=== PATIENT | female | born 1940 | race Caucasian/White ===

== ENCOUNTER → 2016-07-19 | Outpatient (CLI) | payer MEDICARE ==
--- NOTE | 2016-07-19 11:22 | BD ---
EXAMINATION TYPE: MG DEXA axial skeleton. DATE OF EXAM: 07/19/2016 10:47 AM COMPARISON: November 08, 2008 bone scan report. CLINICAL HISTORY: post menopausal Height: 5'1 Weight: 181 FRAX RISK QUESTIONS: Alcohol (3 or more units per day): no Family History (Parent hip fracture): no Glucocorticoids (More than 3mos): no (Ex: prednisone, prednisolone, methylprednisolone, dexamethasone, and hydrocortisone). History of Fracture in Adulthood: yes Secondary Osteoporosis: 1. Type 1 Diabetes: no 2. Hyperthyroidism: no 3. Menopause before 45: yes 4. Malnutrition: no 5. Chronic liver disease: no Rheumatoid Arthritis: no Current Tobacco Use: yes RISK FACTORS HISTORY OF: Surgery to Spine/Hip(right/left)/Wrist (right/left): total rt hip When: 2016 Other Fractures since Age 50: yes When: 66 age Smoke tobacco: yes Postmenopausal woman: MEDICATIONS: Prednisone or other steroids: yes How Lon week Additional Medications: diabetic, blood pressure, restless leg Additional History: post menopausal EXAM MEASUREMENTS: Bone mineral densitometry was performed using the TwtBks System. Bone mineral density as measured about the Lumbar spine is: ----- L1-L4(G/cm2): 1.243 T Score Values are as follows: ----- L2: -1.0 ----- L3: 1.0 ----- L4: 2.1 ----- L1-L4: 0.5 Bone mineral density has: Increased 12.0% since study of: 11/08/2008 Bone mineral density about the L hip (g/cm2): 0.931 T Score values are as follows: -----L Neck: -0.8 -----L Intertrochanter: -0.3 Bone mineral density has: Decreased -5.9% since study of: 11/08/2008 IMPRESSION: Normal (Values between +1 and -1 indicate normal bone mass) NOTE: T-SCORE=SD OF THE YOUNG ADULT MEAN.
--- NOTE | 2016-07-22 09:12 | MM ---
Reason for exam: screening (asymptomatic). Last mammogram was performed 1 year ago. History: Patient is postmenopausal. 2 excisional biopsies of the left breast. Physical Findings: A clinical breast exam by your physician is recommended on an annual basis and results should be correlated with mammographic findings. MG 3D Screening Mammo W/Cad Bilateral CC and MLO view(s) were taken. Prior study comparison: July 18, 2015, left breast MG work up mamm w CAD LT. July 04, 2015, bilateral MG 3d screening mammo w/cad. There are scattered fibroglandular densities. Finding: There are typically benign round calcifications. There is no discrete abnormality. No significant changes in finding since July 18, 2015 and July 04, 2015. ASSESSMENT: Benign, BI-RAD 2 RECOMMENDATION: Routine screening mammogram of both breasts in 1 year.
== END | disposition home or self-care (01) ==
LOC: RADMAMWWP 10:11
PROVIDERS: ATTEND Family Medicine
DX: Z12.31 Encounter for screening mammogram for malignant neoplasm of breast (principal); N95.8 Other specified menopausal and perimenopausal disorders; E11.40 Type 2 diabetes mellitus with diabetic neuropathy, unspecified; J44.9 Chronic obstructive pulmonary disease, unspecified; I10 Essential (primary) hypertension; M16.9 Osteoarthritis of hip, unspecified; Z96.649 Presence of unspecified artificial hip joint
CPT/HCPCS: 77080; 77063; G0202

== ENCOUNTER → 2017-02-26 | Outpatient (CLI) | payer MEDICARE ==
[2017-02-26 12:06] LABS: Basophils % (A) 0 %; CH 30.1; CHCM 32.1; Eosinophils # (A) 0.1 k/uL (0-0.7); Eosinophils % (A) 1 %; HCT 39.5 % (34.0-46.0); HDW 2.24; HGB 12.2 gm/dL (11.4-16.0); Luc # (Auto) 0.19; Luc % (Auto) 2; Lymphocytes # (A) 2.7 k/uL (1.0-4.8); Lymphocytes % (A) 28 %; MCH 29.2 pg (25.0-35.0); MCV 94.3 fL (80.0-100.0); Mean Platelet Volume 7.6; Monocytes # (A) 0.5 k/uL (0-1.0); Monocytes % (A) 5 %; Neutrophils # (A) 6.4 k/uL (1.3-7.7); Neutrophils % (A) 64 %; RBC 4.19 m/uL (3.80-5.40); WBC 9.9 k/uL (3.8-10.6); WBC (Perox) 9.22
[2017-02-26 13:39] LABS: Hemoglobin A1C 9.2 % (4.2-6.1)
== END | disposition home or self-care (01) ==
LOC: LABWHC1 11:14
PROVIDERS: ATTEND Psychiatry & Neurology Neurology
DX: E11.40 Type 2 diabetes mellitus with diabetic neuropathy, unspecified (principal)
CPT/HCPCS: 36415; 83036; 85025

== ENCOUNTER → 2017-11-20 | Outpatient (CLI) | payer MEDICARE, SELFPAY ==
--- NOTE | 2017-11-24 08:22 | MM ---
Reason for exam: screening (asymptomatic). Last mammogram was performed 1 year and 4 months ago. History: Patient is postmenopausal. 2 excisional biopsies of the left breast. Physical Findings: A clinical breast exam by your physician is recommended on an annual basis and results should be correlated with mammographic findings. MG 3D Screening Mammo W/Cad Bilateral CC and MLO view(s) were taken. Prior study comparison: July 19, 2016, bilateral MG 3d screening mammo w/cad. July 18, 2015, left breast MG work up mamm w CAD LT. There are scattered fibroglandular densities. Finding: There are typically benign round calcifications in both breasts. There is a chronic nodularity bilaterally, greater in dustin right breast. There is no discrete abnormality. ASSESSMENT: Benign, BI-RAD 2 RECOMMENDATION: Routine screening mammogram of both breasts in 1 year.
== END | disposition home or self-care (01) ==
LOC: RADMAMWWP 08:55
PROVIDERS: ATTEND Family Medicine
DX: Z12.31 Encounter for screening mammogram for malignant neoplasm of breast (principal)
CPT/HCPCS: 77063; 77067

== ENCOUNTER 2018-06-04 09:39 | Inpatient (IN) | payer MEDICARE ==
[2018-06-04] MEDS ORDERED: SODIUM CHLORIDE 0.9% 1,000 ML IV STA (09:58)
--- NOTE | 2018-06-04 10:09 | ED ---
Abdominal Pain HPI - General Chief Complaint: Abdominal Pain Stated Complaint: Stomach pain Time Seen by Provider: 06/04/18 09:51 Source: patient, RN notes reviewed Mode of arrival: ambulatory Limitations: no limitations - History of Present Illness Initial Comments: 77-year-old female presents emergency Department chief complaint abdominal pain. Patient states has been going on for last 2 months. Patient has seen PCP several times for this has had no workup including no labs or x-rays. Patient was seen at urgent care last night had lab work and was advised her emergency Department if symptoms worsen for possible Or Imaging. Patient Denies Any Fevers or Chills. She States She Does Have Bowel Movements Denies Any Melena or Hematochezia. Patient States Her Bowel Movements Are Hard. Patient Denies Any Back Pain, Flank Pain, Chest Pain or Shortness of Breath. She Has No Dysuria No Hematuria. - Related Data Home Medications Medication Instructions Recorded Confirmed Albuterol Nebulized [Ventolin 2.5 mg INHALATION RT-Q4H PRN 02/14/15 06/04/18 Nebulized] Estradiol 0.5 mg PO DAILY 02/14/15 06/04/18 Gabapentin [Neurontin] 400 mg PO QID 02/14/15 06/04/18 Insulin Lispro Protamin/Lispro 14 units SQ AC-BID 02/14/15 06/04/18 [humaLOG Mix 75-25 Kwikpen] Multivitamins, Thera [Multivitamin 1 tab PO DAILY 02/14/15 06/04/18 (formulary)] Pravastatin Sodium [Pravachol] 80 mg PO HS 02/14/15 06/04/18 sitaGLIPtin PHOS/metFORMIN HCL 2 tab PO AC-SUPPER 02/14/15 06/04/18 [Janumet Xr 50-1,000 mg Tablet] Aspirin EC [Ecotrin Low Dose] 81 mg PO DAILY 06/04/18 06/04/18 Previous Rx's Medication Instructions Recorded Atenolol 25 mg PO DAILY #0 03/01/15 Lisinopril [Zestril] 10 mg PO DAILY #0 03/01/15 Allergies Allergy/AdvReac Type Severity Reaction Status Date / Time cobalt Allergy Unknown TESTED Verified 06/04/18 10:03 POSITIVE ON ALLERGY TESTING latex Allergy Unknown Rash/Hives Verified 06/04/18 10:03 thimerosal Allergy Unknown TESTED Verified 06/04/18 10:03 POSITIVE ON ALLERGY TEST Review of Systems ROS Statement: Those systems with pertinent positive or pertinent negative responses have been documented in the HPI. ROS Other: All systems not noted in ROS Statement are negative. Past Medical History Past Medical History: Diabetes Mellitus History of Any Multi-Drug Resistant Organisms: None Reported Past Surgical History: Orthopedic Surgery Past Psychological History: No Psychological Hx Reported Smoking Status: Current every day smoker Past Alcohol Use History: None Reported Past Drug Use History: None Reported General Exam General appearance: alert, in no apparent distress Head exam: Present: atraumatic, normocephalic, normal inspection Neck exam: Present: normal inspection. Absent: tenderness, meningismus, lymphadenopathy Respiratory exam: Present: normal lung sounds bilaterally. Absent: respiratory distress, wheezes, rales, rhonchi, stridor Cardiovascular Exam: Present: normal rhythm, tachycardia, normal heart sounds. Absent: systolic murmur, diastolic murmur, rubs, gallop, clicks GI/Abdominal exam: Present: soft, tenderness (Mild left-sided and upper abdominal tenderness), normal bowel sounds. Absent: distended, guarding, rebound, rigid Back exam: Absent: CVA tenderness (R), CVA tenderness (L) Skin exam: Present: warm, dry, intact, normal color. Absent: rash Course Vital Signs 06/04/18 09:41 Temperature 98.2 F Pulse Rate 114 H Respiratory 18 Rate Blood Pressure 147/77 O2 Sat by Pulse 100 Oximetry Medical Decision Making - Medical Decision Making 77-year-old female presented for abdominal pain. Patient had CT abdomen initially with findings of possible vasculitis or inflammatory process surrounding the aorta. CT chest was obtained shows some her eye needs. Case discussed with Dr. Enrique cardiothoracic recommend inpatient for further evaluation. This is not evidence of dissection. - Lab Data Result diagrams: 06/04/18 10:30 06/04/18 10:30 Lab Results 06/04/18 06/04/18 06/04/18 Range/Units 10:30 10:30 12:07 WBC 10.9 H (3.8-10.6) k/uL RBC 3.88 (3.80-5.40) m/uL Hgb 9.6 L (11.4-16.0) gm/dL Hct 30.4 L (34.0-46.0) % MCV 78.4 L (80.0-100.0) fL MCH 24.8 L (25.0-35.0) pg MCHC 31.7 (31.0-37.0) g/dL RDW 16.2 H (11.5-15.5) % Plt Count 625 H (150-450) k/uL Neutrophils % 80 % Lymphocytes % 14 % Monocytes % 4 % Eosinophils % 0 % Basophils % 0 % Neutrophils # 8.7 H (1.3-7.7) k/uL Lymphocytes # 1.6 (1.0-4.8) k/uL Monocytes # 0.4 (0-1.0) k/uL Eosinophils # 0.0 (0-0.7) k/uL Basophils # 0.0 (0-0.2) k/uL Hypochromasia Moderate Anisocytosis Slight Microcytosis Slight Sodium 137 (137-145) mmol/L Potassium 5.5 H (3.5-5.1) mmol/L Chloride 102 (98-107) mmol/L Carbon Dioxide 22 (22-30) mmol/L Anion Gap 13 mmol/L BUN 14 (7-17) mg/dL Creatinine 0.81 (0.52-1.04) mg/dL Est GFR (CKD-EPI)AfAm 82 (>60 ml/min/1.73 sqM) Est GFR (CKD-EPI)NonAf 71 (>60 ml/min/1.73 sqM) Glucose 353 H (74-99) mg/dL Calcium 9.6 (8.4-10.2) mg/dL Total Bilirubin 0.8 (0.2-1.3) mg/dL AST 13 L (14-36) U/L ALT 20 (9-52) U/L Alkaline Phosphatase 78 (38-126) U/L Total Protein 7.4 (6.3-8.2) g/dL Albumin 3.6 (3.5-5.0) g/dL Amylase <30 L (30-110) U/L Lipase 15 L (23-300) U/L Urine Color Light Yellow Urine Appearance Clear (Clear) Urine pH 5.5 (5.0-8.0) Ur Specific [place] 1.034 (1.001-1.035) Urine Protein Negative (Negative) Urine Glucose (UA) 3+ H (Negative) Urine Ketones 2+ H (Negative) Urine Blood Negative (Negative) Urine Nitrite Negative (Negative) Urine Bilirubin Negative (Negative) Urine Urobilinogen <2.0 (<2.0) mg/dL Ur Leukocyte Esterase Moderate H (Negative) Urine WBC 10 H (0-5) /hpf Ur Squamous Epith Cells 1 (0-4) /hpf Urine Bacteria Occasional H (None) /hpf Disposition Clinical Impression: Abdominal pain Narrative: Aortic vasculitis Disposition: ADMITTED IP TO THIS HOSP Condition: Stable Referrals: Rachel Farfan MD [Primary Care Provider] - 1-2 days
[2018-06-04 10:54] LABS: Anisocytosis Slight; Basophils % (A) 0 %; Eosinophils % (A) 0 %; HCT 30.4 % (34.0-46.0); HGB 9.6 gm/dL (11.4-16.0); Hypochromasia Moderate; Lymphocytes # (A) 1.6 k/uL (1.0-4.8); Lymphocytes % (A) 14 %; MCH 24.8 pg (25.0-35.0); MCHC 31.7 g/dL (31.0-37.0); MCV 78.4 fL (80.0-100.0); Mean Platelet Volume 6.6; Microcytosis Slight; Monocytes # (A) 0.4 k/uL (0-1.0); Monocytes % (A) 4 %; Neutrophils # (A) 8.7 k/uL (1.3-7.7); Neutrophils % (A) 80 %; Platelet Count 625 k/uL (150-450); RBC 3.88 m/uL (3.80-5.40); RDW 16.2 % (11.5-15.5); WBC 10.9 k/uL (3.8-10.6)
[2018-06-04 11:03] LABS: ALT 20 U/L (9-52); AST 13 U/L (14-36); Albumin 3.6 g/dL (3.5-5.0); Alkaline Phosphatase 78 U/L (38-126); Amylase <30 U/L (30-110); Anion Gap 13 mmol/L; Blood Urea Nitrogen 14 mg/dL (7-17); Calcium 9.6 mg/dL (8.4-10.2); Carbon Dioxide 22 mmol/L (22-30); Chloride 102 mmol/L (98-107); Glucose 353 mg/dL (74-99); Lipase 15 U/L (23-300); Potassium 5.5 mmol/L (3.5-5.1); Sodium 137 mmol/L (137-145); Total Bilirubin 0.8 mg/dL (0.2-1.3); Total Protein 7.4 g/dL (6.3-8.2)
--- NOTE | 2018-06-04 11:30 | CT ---
EXAMINATION TYPE: CT abdomen pelvis w con DATE OF EXAM: 06/04/2018 COMPARISON: None HISTORY: generalized pain since January 2018 CT DLP: 788.8 mGycm CONTRAST: CT scan of the abdomen and pelvis is performed without Oral Contrast and with IV Contrast, patient in jected with 100 mL of Isovue 300. FINDINGS: LUNG BASES-: Pulmonary nodule measuring 1.4 cm is noted adjacent to the left ventricle left lower lob e. CT chest recommended. LIVER/GB: No calcified gallstones. No space occupying hepatic lesion. Biliary tree is of normal ca liber. PANCREAS: No inflammation. No distinct mass. SPLEEN: No splenic enlargement. No lesion seen. ADRENALS: No nodule. No thickening. KIDNEYS/BLADDER: No hydronephrosis. No nephrolithiasis. No distinct renal mass. Urinary bladder g rossly unremarkable. BOWEL: Normal appendix. Normal bowel caliber. No inflammation. GENITAL ORGANS: Postoperative changes of hysterectomy. LYMPH NODES: No greater than 1cm abdominal or pelvic lymph nodes are appreciated. AORTA: There is enhancing soft tissue surrounding the distal thoracic aorta as well as portions of th e abdominal aorta which may reflect chronic periaortitis, vasculitis or retroperitoneal fibrosis/medi astinal fibrosis. CT of the chest is recommended for further evaluation. OSSEOUS STRUCTURES: No significant abnormality is seen. OTHER: No significant additional abnormality is seen. IMPRESSION: 1. There is enhancing soft tissue surrounding the distal thoracic aorta as well as portions of the ab dominal aorta which may reflect chronic periaortitis, vasculitis or retroperitoneal fibrosis/mediasti nal fibrosis. CT of the chest is recommended for further evaluation. 2. Left lower lobe pulmonary nodule. Further evaluation with CT is advised.
[2018-06-04 12:26] LABS: Appearance,Urine Clear (Clear); Bacteria,Urine Occasional /hpf; Bilirubin,Urine Negative (Negative); Blood,Urine Negative (Negative); Color,Urine Light Yellow; Glucose,Urine (UA) 3+ (Negative); Leukocyte Esterase,Urine Moderate (Negative); Nitrite,Urine Negative (Negative); PH, Urine 5.5 (5.0-8.0); Protein,Urine Negative (Negative); Specific Gravity,Urine 1.034 (1.001-1.035); Squamous Epithelial Cell,Urine 1 /hpf (0-4); Urobilinogen,Urine <2.0 mg/dL (<2.0); WBC,Urine 10 /hpf (0-5)
[2018-06-04 12:32] LABS: Ketones,Urine 2+ (Negative)
--- NOTE | 2018-06-04 12:40 | CT ---
EXAMINATION TYPE: CT chest wo con DATE OF EXAM: 06/04/2018 COMPARISON: CT abdomen pelvis from the same day. HISTORY: Abn CT abd pelvis CT DLP: 268.[address] of the chest was performed with lung and mediastinal window settings submitted. The la ck of contrast limits evaluation of the vascular, mediastinal and parenchymal structures including th e upper abdomen. LUNGS: The lungs are clear and free of infiltrate. No atelectasis. Solitary pulmonary nodule left low er lobe adjacent to the posterior heart. No additional nodules are present. Linear scarring within th e lingula. No pleural effusion. No CT evidence of interstitial lung disease. MEDIASTINUM/ABIMAEL: There is soft tissue surrounding the descending thoracic aorta extending from just distal aortic arch through the distal descending thoracic aorta. This is not compatible with hemorrha ge. Associated atheromatous changes without evidence for aneurysm. No evidence for mediastinal mass. UPPER ABDOMEN: No significant abnormality is seen. OTHER: No significant other abnormality. IMPRESSION: 1. Findings are felt to reflect aortic periaortitis, vasculitis or retroperitoneal fibrosis/mediasti nal fibrosis. No evidence for hemorrhage. 2. Nonspecific pulmonary nodule. Follow-up in 3 months is advised.
[2018-06-04] MEDS ORDERED: KETOROLAC 30 MG/ML 1 ML VIAL IVP STA (13:17)
[2018-06-04] MEDS ORDERED: BUTA/APAP/CAF/COD 50-325-40-30 CAP PO STA (13:17)
[2018-06-04] MEDS ORDERED: NALOXONE 0.4 MG/ML 1 ML VIAL IV PRN (14:00)
[2018-06-04] MEDS ORDERED: ALBUTEROL NEBULIZED 2.5 MG/3 ML INHALATION PRN (14:03)
[2018-06-04] MEDS: SODIUM CHLORIDE 0.9% 1,000 ML IV SCH (14:14)
[2018-06-04 14:22] LABS: Glucose,Whole Blood 308 mg/dL (75-99)
[2018-06-04] MEDS ORDERED: SODIUM POLYSTYRENE SULFONATE 15 GM/60 ML BOTTLE PO STA (14:56)
--- NOTE | 2018-06-04 15:11 | P.HPIM ---
History of Present Illness H&P Date: 06/04/18 Chief Complaint: Abdominal pain This is a 77-year-old female with a known past medical history of hypertension, hyperlipidemia, diabetes mellitus, nicotine dependence, obstructive sleep apnea uses CPAP. She reports having abdominal pain since January. She had gone to see her PCP their concerns of constipation. However, patient reports having the abdominal pain before she had issues with constipation. She reports having daily bowel movements. No nausea or vomiting. Pain is worse after eating any type of food. Pain is across the abdomen. It can be sharp or achy at times. She denies any blood or black stools. Denies any nausea or vomiting. Denies any fever chills or sweats. Denies any chest pain or shortness of breath. She does admit to having some burning with urination. She does have evidence of UTI and will be started on Rocephin. Last night she had initially gone to the ER but left due to the weight and went to urgent care and was instructed to go to the ER for further imaging. Computed tomography scan of the abdomen and pelvis completed showing enhancing soft tissue surrounding the distal thoracic aorta as well as portions of the abdominal aorta which may reflect chronic periaortitis, vasculitis for retroperitoneal fibrosis or mediastinal fibrosis. There is also a left lower lobe pulmonary nodule noted. Computed tomography scan of the chest then ordered and findings felt to reflect aortic aortitis, vasculitis or retroperitoneal fibrosis/mediastinal fibrosis. No evidence for hemorrhage. Nonspecific pulmonary nodule. They recommend follow-up in 3 months. Cardiothoracic surgeon has been placed on consult. Patient does have a white count of 10.9 hemoglobin 9.6 platelets 625 potassium 5.5 and blood sugar 308. She has evidence of UTI. Review of Systems Please refer to HPI otherwise unremarkable Past Medical History Past Medical History: Diabetes Mellitus History of Any Multi-Drug Resistant Organisms: None Reported Past Surgical History: Orthopedic Surgery Past Psychological History: No Psychological Hx Reported Smoking Status: Current every day smoker Past Alcohol Use History: None Reported Past Drug Use History: None Reported Medications and Allergies Home Medications Medication Instructions Recorded Confirmed Type Albuterol Nebulized [Ventolin 2.5 mg INHALATION RT-Q4H PRN 02/14/15 06/04/18 History Nebulized] Estradiol 0.5 mg PO DAILY 02/14/15 06/04/18 History Gabapentin [Neurontin] 400 mg PO QID 02/14/15 06/04/18 History Insulin Lispro Protamin/Lispro 14 units SQ AC-BID 02/14/15 06/04/18 History [humaLOG Mix 75-25 Kwikpen] Multivitamins, Thera [Multivitamin 1 tab PO DAILY 02/14/15 06/04/18 History (formulary)] Pravastatin Sodium [Pravachol] 80 mg PO HS 02/14/15 06/04/18 History sitaGLIPtin PHOS/metFORMIN HCL 2 tab PO AC-SUPPER 02/14/15 06/04/18 History [Janumet Xr 50-1,000 mg Tablet] Atenolol 25 mg PO DAILY #0 03/01/15 06/04/18 Rx Lisinopril [Zestril] 10 mg PO DAILY #0 03/01/15 06/04/18 Rx Aspirin EC [Ecotrin Low Dose] 81 mg PO DAILY 06/04/18 06/04/18 History Allergies Allergy/AdvReac Type Severity Reaction Status Date / Time cobalt Allergy Unknown TESTED Verified 06/04/18 10:03 POSITIVE ON ALLERGY TESTING latex Allergy Unknown Rash/Hives Verified 06/04/18 10:03 thimerosal Allergy Unknown TESTED Verified 06/04/18 10:03 POSITIVE ON ALLERGY TEST Physical Exam Vitals: Vital Signs Temp Pulse Resp BP Pulse Ox 06/04/18 09:41 98.2 F 114 H 18 147/77 100 Intake and Output 06/04/18 06/04/18 06/04/18 06:59 14:59 22:59 Other: Weight 68.946 kg Head normocephalic Neck supple Lungs clear to auscultation bilaterally no wheezing or crackles Heart regular rate and rhythm S1-S2, no rub or gallop Abdomen is soft nondistended positive bowel sounds diffuse abdominal tenderness Extremities no edema Neuro alert and orientated to 3 Results CBC & Chem 7: 06/04/18 10:30 06/04/18 10:30 Labs: Abnormal Lab Results - Last 24 Hours (Table) 06/04/18 06/04/18 06/04/18 Range/Units 10:30 10:30 12:07 WBC 10.9 H (3.8-10.6) k/uL Hgb 9.6 L (11.4-16.0) gm/dL Hct 30.4 L (34.0-46.0) % MCV 78.4 L (80.0-100.0) fL MCH 24.8 L (25.0-35.0) pg RDW 16.2 H (11.5-15.5) % Plt Count 625 H (150-450) k/uL Neutrophils # 8.7 H (1.3-7.7) k/uL Potassium 5.5 H (3.5-5.1) mmol/L Glucose 353 H (74-99) mg/dL POC Glucose (mg/dL) (75-99) mg/dL AST 13 L (14-36) U/L Amylase <30 L (30-110) U/L Lipase 15 L (23-300) U/L Urine Glucose (UA) 3+ H (Negative) Urine Ketones 2+ H (Negative) Ur Leukocyte Esterase Moderate H (Negative) Urine WBC 10 H (0-5) /hpf Urine Bacteria Occasional H (None) /hpf 06/04/18 Range/Units 14:21 WBC (3.8-10.6) k/uL Hgb (11.4-16.0) gm/dL Hct (34.0-46.0) % MCV (80.0-100.0) fL MCH (25.0-35.0) pg RDW (11.5-15.5) % Plt Count (150-450) k/uL Neutrophils # (1.3-7.7) k/uL Potassium (3.5-5.1) mmol/L Glucose (74-99) mg/dL POC Glucose (mg/dL) 308 H (75-99) mg/dL AST (14-36) U/L Amylase (30-110) U/L Lipase (23-300) U/L Urine Glucose (UA) (Negative) Urine Ketones (Negative) Ur Leukocyte Esterase (Negative) Urine WBC (0-5) /hpf Urine Bacteria (None) /hpf Assessment and Plan Assessment: 1. Abdominal pain with computed tomography scan of the chest abdomen and pelvis showing findings at felt to reflect aortic periaortitis, vasculitis or retroperitoneal fibrosis/mediastinal fibrosis. Cardiothoracic surgeon has been consulted 2. Nonspecific pulmonary nodule in the left lower lobe 3. UTI: Check urine culture. Start Rocephin 1 g daily 4. Hyperkalemia: Potassium 5.5. Give Kayexalate 15 g 1. Discontinue lisinopril. Repeat potassium level in a.m. 5. Microcytic Anemia hemoglobin 9.6 no active signs of bleeding. Check iron studies 6. Diabetes mellitus type 2: Resume insulin add sliding scale coverage. Hold metformin during hospitalization. Patient did receive contrast CAT scan 7. Essential hypertension 8. Hyperlipidemia 9. Nicotine dependence: Patient refused nicotine patch. Discussed smoking cessation for greater than 3 minutes 10. Obstructive sleep apnea uses CPAP at home 11. Thrombocytosis: Repeat CBC in a.m. GI prophylaxis tonics and DVT prophylaxis subcu heparin Time with Patient: Greater than 30 (Greater than 50% of the total time spent in counseling and coordination of care.I performed an examination of the patient and discussed their management with the physician [employer]. I have reviewed the Physician [employer]'s notes and agree with the documented findings and plan of care)
[2018-06-04] MEDS: INSULIN ASPART 100 UNIT/ML 1 ML 10 ML VIAL SQ SCH ×3 (15:25→21:51)
[2018-06-04] MEDS: PANTOPRAZOLE 40 MG TABLET PO SCH (16:38)
[2018-06-04 16:39] LABS: Glucose,Whole Blood 251 mg/dL (75-99)
[2018-06-04 18:21] LABS: Glucose,Whole Blood 170 mg/dL (75-99)
[2018-06-04] MEDS: GABAPENTIN 400 MG CAP PO SCH ×2 (18:28→21:39)
[2018-06-04] MEDS: INSULN ASP PRT/INSULIN ASPART 100 UNIT/ML 10 ML VIAL SQ SCH (18:28)
[2018-06-04] MEDS: HEPARIN SODIUM,PORCINE 5,000 UNIT/ML 1 ML VIAL SQ SCH (21:39)
[2018-06-04] MEDS: PRAVASTATIN SODIUM 80 MG TAB PO SCH (21:39)
[2018-06-04 21:56] LABS: Glucose,Whole Blood 88 mg/dL (75-99)
[2018-06-05] MEDS: SODIUM CHLORIDE 0.9% 1,000 ML IV SCH (04:06)
[2018-06-05 04:26] LABS: Iron Saturation 8.43 (12.00-45.00)
[2018-06-05 07:32] LABS: Glucose,Whole Blood 187 mg/dL (75-99)
[2018-06-05] MEDS: INSULN ASP PRT/INSULIN ASPART 100 UNIT/ML 10 ML VIAL SQ SCH ×2 (07:36→17:17)
[2018-06-05] MEDS: HEPARIN SODIUM,PORCINE 5,000 UNIT/ML 1 ML VIAL SQ SCH ×2 (07:36→21:45)
[2018-06-05] MEDS: INSULIN ASPART 100 UNIT/ML 1 ML 10 ML VIAL SQ SCH ×4 (07:36→21:43)
[2018-06-05] MEDS: PANTOPRAZOLE 40 MG TABLET PO SCH (07:36)
[2018-06-05] MEDS: MULTIVITAMINS, THERA 1 EACH TAB PO SCH (07:37)
[2018-06-05] MEDS: ESTRADIOL 0.5 MG TAB PO SCH (07:37)
[2018-06-05] MEDS: ASPIRIN 81 MG PO SCH (07:37)
[2018-06-05] MEDS: GABAPENTIN 400 MG CAP PO SCH ×4 (07:37→21:46)
[2018-06-05] MEDS: ATENOLOL 25 MG TAB PO SCH (07:37)
[2018-06-05] MEDS ORDERED: LISINOPRIL 10 MG TAB PO SCH (09:00)
[2018-06-05 09:53] LABS: Anisocytosis Slight; Basophils % (A) 0 %; Eosinophils # (A) 0.1 k/uL (0-0.7); Eosinophils % (A) 1 %; HCT 28.5 % (34.0-46.0); Hypochromasia Moderate; Lymphocytes % (A) 19 %; MCH 24.8 pg (25.0-35.0); MCHC 31.5 g/dL (31.0-37.0); MCV 78.6 fL (80.0-100.0); Mean Platelet Volume 6.7; Microcytosis Slight; Monocytes # (A) 0.5 k/uL (0-1.0); Monocytes % (A) 4 %; Neutrophils # (A) 7.8 k/uL (1.3-7.7); Neutrophils % (A) 74 %; Platelet Count 564 k/uL (150-450); RBC 3.63 m/uL (3.80-5.40); RDW 16.6 % (11.5-15.5); WBC 10.5 k/uL (3.8-10.6)
[2018-06-05 10:51] LABS: Albumin 3.2 g/dL (3.5-5.0); Calcium 8.9 mg/dL (8.4-10.2); Potassium 4.7 mmol/L (3.5-5.1); Total Bilirubin 0.3 mg/dL (0.2-1.3); Total Protein 6.7 g/dL (6.3-8.2)
--- NOTE | 2018-06-05 12:12 | P.PN ---
Subjective Progress Note Date: 06/05/18 This is a 77-year-old female with a known past medical history of hypertension, hyperlipidemia, diabetes mellitus, nicotine dependence, obstructive sleep apnea uses CPAP. She reports having abdominal pain since January. She had gone to see her PCP their concerns of constipation. However, patient reports having the abdominal pain before she had issues with constipation. She reports having daily bowel movements. No nausea or vomiting. Pain is worse after eating any type of food. Pain is across the abdomen. It can be sharp or achy at times. She denies any blood or black stools. Denies any nausea or vomiting. Denies any fever chills or sweats. Denies any chest pain or shortness of breath. She does admit to having some burning with urination. She does have evidence of UTI and will be started on Rocephin. Last night she had initially gone to the ER but left due to the weight and went to urgent care and was instructed to go to the ER for further imaging. Computed tomography scan of the abdomen and pelvis completed showing enhancing soft tissue surrounding the distal thoracic aorta as well as portions of the abdominal aorta which may reflect chronic periaortitis, vasculitis for retroperitoneal fibrosis or mediastinal fibrosis. There is also a left lower lobe pulmonary nodule noted. Computed tomography scan of the chest then ordered and findings felt to reflect aortic aortitis, vasculitis or retroperitoneal fibrosis/mediastinal fibrosis. No evidence for hemorrhage. Nonspecific pulmonary nodule. They recommend follow-up in 3 months. Cardiothoracic surgeon has been placed on consult. Patient does have a white count of 10.9 hemoglobin 9.6 platelets 625 potassium 5.5 and blood sugar 308. She has evidence of UTI. 06/05/2018 patient reporting some improvement in her abdominal pain. No nausea or vomiting. Denies any bowel movements. She is passing gas. White count normalized at 10.5 hemoglobin 9. Rheumatoid factor elevated at 90 CRP elevated at 138.4 and ANCA is pending. Patient denies any chest pain or shortness of breath. Still having decreased appetite Objective - Vital Signs Vital signs: Vital Signs Temp 98.7 F 06/05/18 07:00 Pulse 106 H 06/05/18 07:00 Resp 20 06/05/18 07:00 BP 144/80 06/05/18 07:00 Pulse Ox 95 06/05/18 07:00 Intake & Output 06/04/18 06/05/18 06/05/18 18:59 06:59 18:59 Intake Total 800 Balance 800 Weight 68.946 kg 68.946 kg Intake: Oral 800 Other: # Voids 2 - Exam Head normocephalic Neck supple Lungs clear to auscultation bilaterally no wheezing or crackles Heart regular rate and rhythm S1-S2, no rub or gallop Abdomen is soft diffuse tenderness nondistended positive bowel sounds no hepatosplenomegaly Extremities no edema Neuro alert and orientated to 3 - Labs CBC & Chem 7: 06/05/18 09:25 06/05/18 09:25 Labs: Abnormal Lab Results - Last 24 Hours (Table) 06/04/18 06/04/18 06/04/18 Range/Units 10:30 10:30 12:07 RBC (3.80-5.40) m/uL Hgb (11.4-16.0) gm/dL Hct (34.0-46.0) % MCV (80.0-100.0) fL MCH (25.0-35.0) pg RDW (11.5-15.5) % Plt Count (150-450) k/uL Neutrophils # (1.3-7.7) k/uL ESR (0-20) mm/hr Chloride (98-107) mmol/L Glucose (74-99) mg/dL POC Glucose (mg/dL) (75-99) mg/dL Iron 21 L (50-170) ug/dL Iron Saturation 8.43 L (12.00-45.00) Ferritin 311.7 H (10.0-291.0) ng/mL AST (14-36) U/L C-Reactive Protein (<10.0) mg/L Albumin (3.5-5.0) g/dL Urine Glucose (UA) 3+ H (Negative) Urine Ketones 2+ H (Negative) Ur Leukocyte Esterase Moderate H (Negative) Urine WBC 10 H (0-5) /hpf Urine Bacteria Occasional H (None) /hpf Rheumatoid Factor 90 H (0-15) IU/mL 06/04/18 06/04/18 06/04/18 Range/Units 14:21 15:40 15:40 RBC (3.80-5.40) m/uL Hgb (11.4-16.0) gm/dL Hct (34.0-46.0) % MCV (80.0-100.0) fL MCH (25.0-35.0) pg RDW (11.5-15.5) % Plt Count (150-450) k/uL Neutrophils # (1.3-7.7) k/uL ESR 120 H (0-20) mm/hr Chloride (98-107) mmol/L Glucose (74-99) mg/dL POC Glucose (mg/dL) 308 H (75-99) mg/dL Iron (50-170) ug/dL Iron Saturation (12.00-45.00) Ferritin (10.0-291.0) ng/mL AST (14-36) U/L C-Reactive Protein 138.4 H (<10.0) mg/L Albumin (3.5-5.0) g/dL Urine Glucose (UA) (Negative) Urine Ketones (Negative) Ur Leukocyte Esterase (Negative) Urine WBC (0-5) /hpf Urine Bacteria (None) /hpf Rheumatoid Factor (0-15) IU/mL 06/04/18 06/04/18 06/05/18 Range/Units 16:38 18:18 07:29 RBC (3.80-5.40) m/uL Hgb (11.4-16.0) gm/dL Hct (34.0-46.0) % MCV (80.0-100.0) fL MCH (25.0-35.0) pg RDW (11.5-15.5) % Plt Count (150-450) k/uL Neutrophils # (1.3-7.7) k/uL ESR (0-20) mm/hr Chloride (98-107) mmol/L Glucose (74-99) mg/dL POC Glucose (mg/dL) 251 H 170 H 187 H (75-99) mg/dL Iron (50-170) ug/dL Iron Saturation (12.00-45.00) Ferritin (10.0-291.0) ng/mL AST (14-36) U/L C-Reactive Protein (<10.0) mg/L Albumin (3.5-5.0) g/dL Urine Glucose (UA) (Negative) Urine Ketones (Negative) Ur Leukocyte Esterase (Negative) Urine WBC (0-5) /hpf Urine Bacteria (None) /hpf Rheumatoid Factor (0-15) IU/mL 06/05/18 06/05/18 Range/Units 09:25 09:25 RBC 3.63 L (3.80-5.40) m/uL Hgb 9.0 L (11.4-16.0) gm/dL Hct 28.5 L (34.0-46.0) % MCV 78.6 L (80.0-100.0) fL MCH 24.8 L (25.0-35.0) pg RDW 16.6 H (11.5-15.5) % Plt Count 564 H (150-450) k/uL Neutrophils # 7.8 H (1.3-7.7) k/uL ESR (0-20) mm/hr Chloride 108 H (98-107) mmol/L Glucose 219 H (74-99) mg/dL POC Glucose (mg/dL) (75-99) mg/dL Iron (50-170) ug/dL Iron Saturation (12.00-45.00) Ferritin (10.0-291.0) ng/mL AST 13 L (14-36) U/L C-Reactive Protein (<10.0) mg/L Albumin 3.2 L (3.5-5.0) g/dL Urine Glucose (UA) (Negative) Urine Ketones (Negative) Ur Leukocyte Esterase (Negative) Urine WBC (0-5) /hpf Urine Bacteria (None) /hpf Rheumatoid Factor (0-15) IU/mL Microbiology - Last 24 Hours (Table) 06/04/18 12:07 Urine Culture - Preliminary Urine,Voided Assessment and Plan Assessment: 1. Abdominal pain with computed tomography scan of the chest abdomen and pelvis showing findings at felt to reflect aortic periaortitis, vasculitis or retroperitoneal fibrosis/mediastinal fibrosis. CRP and rheumatoid factor elevated. ANCA pending 2. Nonspecific pulmonary nodule in the left lower lobe. Evaluated by pulmonary service 3. UTI: Continue Rocephin. Urine culture pending 4. Hyperkalemia: Resolved after Kayexalate. Repeat potassium 4.7. XOCHITL inhibitor was also discontinued 5. Iron deficiency anemia: Hemoglobin 9. Total iron 21. Start ferrous sulfate 325 mg twice a day. Also add Colace to prevent constipation 6. Diabetes mellitus type 2: Resume home insulin add sliding scale coverage. Hold metformin during hospitalization. Patient did receive contrast CAT scan 7. Essential hypertension 8. Hyperlipidemia 9. Nicotine dependence: Patient refused nicotine patch. Discussed smoking cessation for greater than 3 minutes 10. Obstructive sleep apnea uses CPAP at home 11. Thrombocytosis: Repeat CBC in a.m. GI prophylaxis Protonix and DVT prophylaxis subcu heparin I performed an examination of the patient and discussed their management with the physician Morgue Attendant. I have reviewed the Physician Morgue Attendant's notes and agree with the documented findings and plan of care
[2018-06-05 12:24] LABS: Glucose,Whole Blood 134 mg/dL (75-99)
[2018-06-05 13:40] VITALS: BMI 29.7
--- NOTE | 2018-06-05 15:33 | P.CNPUL ---
History of Present Illness Consult date: 06/05/18 Requesting physician: Mahendra Do Reason for consult: abnormal CXR/CT (Left lower lobe pulmonary nodule) Chief complaint: Abdominal pain History of present illness: This is a very pleasant 77-year-old female patient who follows with Dr. Farfan as her primary care physician. She has a history of diabetes mellitus, diabetic neuropathy, hyperlipidemia and chronic and ongoing tobacco dependence. She is not been seen by conservation educator in the past. Not on any inhalers or oxygen at home. She presented here to the emergency room yesterday with complaints of abdominal pain that has been going on and off for approximately 2 months now. She has been seen by her PCP without any further evaluation or workup. Computed tomography scan here of the abdomen and pelvis revealed enhancing soft tissue surrounding the distal thoracic aorta as well as portions of the abdominal aorta which may reflect chronic periaortitis, vasculitis or retroperitoneal fibrosis/mediastinal fibrosis. Computed tomography scan of the chest was clear other than a nonspecific left lower lobe pulmonary nodule. We are consulted for the same. She is seen today in consultation on the regular medical floor. She is awake and alert in no acute distress. She has no pulmonary complaints. No shortness of breath, cough or congestion. No hemoptysis. She is maintaining good O2 saturations in the 90s on room air. Still with intermittent abdominal discomfort. CT services have been consulted. White count 10.5. Hemoglobin 9.0. Creatinine 0.78. Review of Systems 14 point review of system was conducted. All negative other than as mentioned in the HPI. Past Medical History Past Medical History: Diabetes Mellitus, Hyperlipidemia, Hypertension, Osteoarthritis (OA), Sleep Apnea/CPAP/BIPAP Additional Past Medical History / Comment(s): neuropathy, rls, herniated disc in back, occ constipation, past fall w/fx lt shoulder-no sx just wore a sling. PNE VACCINE FEW YEARS AGO , [employer] UNABLE TO VERIFY DATE AT TIME OF THIS ADMIT History of Any Multi-Drug Resistant Organisms: None Reported Past Surgical History: Hernia Repair, Orthopedic Surgery, Tubal Ligation Additional Past Surgical History / Comment(s): um hernia repair, cataracts, lasik eye sx, rt total knee replacement Past Anesthesia/Blood Transfusion Reactions: Family History of Problems w/ Anesthesia Additional Past Anesthesia/Blood Transfusion Reaction / Comment(s): brother had ponv Smoking Status: Current every day smoker - Past Family History Mother Family Medical History: Diabetes Mellitus, Myocardial Infarction ([place]) Additional Family Medical History / Comment(s): Father Family Medical History: Diabetes Mellitus, Myocardial Infarction ([place]) Additional Family Medical History / Comment(s): Brother(s) Family Medical History: Myocardial Infarction ([place]) Additional Family Medical History / Comment(s): Medications and Allergies Home Medications Medication Instructions Recorded Confirmed Type Albuterol Nebulized [Ventolin 2.5 mg INHALATION RT-Q4H PRN 02/14/15 06/04/18 History Nebulized] Estradiol 0.5 mg PO DAILY 02/14/15 06/04/18 History Gabapentin [Neurontin] 400 mg PO QID 02/14/15 06/04/18 History Insulin Lispro Protamin/Lispro 14 units SQ AC-BID 02/14/15 06/04/18 History [humaLOG Mix 75-25 Kwikpen] Multivitamins, Thera [Multivitamin 1 tab PO DAILY 02/14/15 06/04/18 History (formulary)] Pravastatin Sodium [Pravachol] 80 mg PO HS 02/14/15 06/04/18 History sitaGLIPtin PHOS/metFORMIN HCL 2 tab PO AC-SUPPER 02/14/15 06/04/18 History [Janumet Xr 50-1,000 mg Tablet] Atenolol 25 mg PO DAILY #0 03/01/15 06/04/18 Rx Lisinopril [Zestril] 10 mg PO DAILY #0 03/01/15 06/04/18 Rx Aspirin EC [Ecotrin Low Dose] 81 mg PO DAILY 06/04/18 06/04/18 History Allergies Allergy/AdvReac Type Severity Reaction Status Date / Time cobalt Allergy Unknown TESTED Verified 06/04/18 10:03 POSITIVE ON ALLERGY TESTING latex Allergy Unknown Rash/Hives Verified 06/04/18 10:03 thimerosal Allergy Unknown TESTED Verified 06/04/18 10:03 POSITIVE ON ALLERGY TEST Physical Exam Vitals: Vital Signs Temp Pulse Pulse Resp BP BP Pulse Ox 06/05/18 07:00 98.7 F 106 H 20 144/80 95 06/04/18 23:00 98.3 F 99 18 110/64 96 06/04/18 18:48 16 06/04/18 18:15 97.8 F 126 H 18 145/88 98 06/04/18 17:44 98.2 F 120 H 18 135/82 97 Intake and Output 06/05/18 06/05/18 06/05/18 06:59 14:59 22:59 Intake Total 350 Balance 350 Intake: Oral 350 Other: # Voids 2 Weight 68.946 kg 68.946 kg GENERAL EXAM: Alert, active, comfortable in no apparent distress. On room air. HEAD: Normocephalic. EYES: Normal reaction of pupils, equal size. NOSE: Clear with pink turbinates. THROAT: No erythema or exudates. NECK: No masses, no JVD. CHEST: No chest wall deformity. LUNGS: Equal air entry with no crackles, wheeze, rhonchi or dullness. CVS: S1 and S2 normal with no audible murmur, regular rhythm. ABDOMEN: Mild tenderness on palpation. No hepatosplenomegaly, normal bowel sounds, no guarding or rigidity. SPINE: No scoliosis or deformity SKIN: No rashes CENTRAL NERVOUS SYSTEM: No focal deficits, tone is normal in all 4 extremities. EXTREMITIES: There is no peripheral edema. No clubbing, no cyanosis. Peripheral pulses are intact. Results - Laboratory Findings CBC and BMP: 06/05/18 09:25 06/05/18 09:25 Abnormal lab findings: Abnormal Labs 06/04/18 06/04/18 06/04/18 10:30 10:30 10:30 WBC 10.9 H RBC Hgb 9.6 L Hct 30.4 L MCV 78.4 L MCH 24.8 L RDW 16.2 H Plt Count 625 H Neutrophils # 8.7 H ESR Potassium 5.5 H Chloride Glucose 353 H POC Glucose (mg/dL) Iron 21 L Iron Saturation 8.43 L Ferritin 311.7 H AST 13 L C-Reactive Protein Albumin Amylase <30 L Lipase 15 L Urine Glucose (UA) Urine Ketones Ur Leukocyte Esterase Urine WBC Urine Bacteria Rheumatoid Factor 06/04/18 06/04/18 06/04/18 10:30 12:07 14:21 WBC RBC Hgb Hct MCV MCH RDW Plt Count Neutrophils # ESR Potassium Chloride Glucose POC Glucose (mg/dL) 308 H Iron Iron Saturation Ferritin AST C-Reactive Protein Albumin Amylase Lipase Urine Glucose (UA) 3+ H Urine Ketones 2+ H Ur Leukocyte Esterase Moderate H Urine WBC 10 H Urine Bacteria Occasional H Rheumatoid Factor 90 H 06/04/18 06/04/18 06/04/18 15:40 15:40 16:38 WBC RBC Hgb Hct MCV MCH RDW Plt Count Neutrophils # ESR 120 H Potassium Chloride Glucose POC Glucose (mg/dL) 251 H Iron Iron Saturation Ferritin AST C-Reactive Protein 138.4 H Albumin Amylase Lipase Urine Glucose (UA) Urine Ketones Ur Leukocyte Esterase Urine WBC Urine Bacteria Rheumatoid Factor 06/04/18 06/05/18 06/05/18 18:18 07:29 09:25 WBC RBC 3.63 L Hgb 9.0 L Hct 28.5 L MCV 78.6 L MCH 24.8 L RDW 16.6 H Plt Count 564 H Neutrophils # 7.8 H ESR Potassium Chloride Glucose POC Glucose (mg/dL) 170 H 187 H Iron Iron Saturation Ferritin AST C-Reactive Protein Albumin Amylase Lipase Urine Glucose (UA) Urine Ketones Ur Leukocyte Esterase Urine WBC Urine Bacteria Rheumatoid Factor 06/05/18 06/05/18 09:25 12:18 WBC RBC Hgb Hct MCV MCH RDW Plt Count Neutrophils # ESR Potassium Chloride 108 H Glucose 219 H POC Glucose (mg/dL) 134 H Iron Iron Saturation Ferritin AST 13 L C-Reactive Protein Albumin 3.2 L Amylase Lipase Urine Glucose (UA) Urine Ketones Ur Leukocyte Esterase Urine WBC Urine Bacteria Rheumatoid Factor - Diagnostic Findings CT scan - chest: image reviewed (Nonspecific left lower lobe pulmonary nodule) Assessment and Plan Assessment: Impression: #1 Abdominal pain with computed tomography scan results revealing enhancing soft tissue surrounding the distal thoracic aorta as well as portions of the abdominal aorta which may reflect chronic periaortitis, vasculitis or retroperitoneal fibrosis/mediastinal fibrosis. #2 Nonspecific single pulmonary nodule left lower lobe to be followed in the outpatient setting. #3 Diabetes mellitus. #4 Diabetic neuropathy. #5 Chronic and ongoing tobacco dependence. #6 Hyperlipidemia. Plan: The patient was seen and evaluated by Dr. Zavala. CAT scan of the chest was reviewed. Nonspecific single pulmonary nodule. We'll follow up in the outpatient setting with serial CT scans. She would also benefit from a follow- up in our office we'll perform full pulmonary function testing to evaluate the severity of her COPD and make recommendations regarding possible maintenance medications. She is educated regarding the importance of complete smoking cessation. NicoDerm patch has been offered. We'll await further input from CT services. I, the cosigning physician, performed a history & physical examination of the patient. Lungs sounds are clear. Maintaining good O2 saturations in the 90s on room air. I discussed the assessment and plan of care with my nurse practitioner, Carolyn Riley. I attest to the above consultation as dictated by her. Time with Patient: Greater than 30
[2018-06-05 16:22] LABS: T4, Free (Free Thyroxine) 2.08 ng/dL (0.78-2.19)
--- NOTE | 2018-06-05 17:00 | P.GSCN ---
History of Present Illness Consult date: 06/05/18 Reason for Consult: Aortic vasculitis Requesting physician: Mahendra Do History of present illness: This is a 77-year-old female patient who is followed by Dr. Farfan on an outpatient basis. The patient has a past medical history significant for diabetes mellitus with diabetic neuropathy, hypertension, hyperlipidemia, chronic ongoing tobacco dependence smokes about 1 pack per day, and obstructive sleep apnea with CPAP use. Recently, the patient has had complaints of severe abdominal pain, 20 pound weight loss since January 2018, decreased appetite and constipation. This has been followed by her primary care physician and the patient has subsequently been treated for constipation. She reports that the abdominal pain has been ongoing since January 2018. She denies any complaints of nausea, vomiting, blood in her stool, or diarrhea. Subsequently her daughter was visiting over the holidays and recommended that her mother go to the emergency department for further evaluation and workup. In the emergency department she underwent a computed tomography scan of her abdomen/ pelvis which showed enhancing soft tissue surrounding the distal thoracic aorta as well as portions of the abdominal aorta which may reflect chronic periaortic Carl, vasculitis or retroperitoneal fibrosis/mediastinal fibrosis. It also demonstrated a left lower lobe pulmonary nodule measuring 1.4 cm. For further evaluation the computed tomography scan of her chest was completed which demonstrated findings felt to reflect aortic periaortic Carl, vasculitis or retroperitoneal fibrosis/mediastinal fibrosis. No evidence of hemorrhage, it also demonstrated a nonspecific pulmonary nodule. Due to the patient's presenting symptoms and CT of her abdomen/pelvis and chest results a consult was placed to Dr. Enrique from cardiothoracic surgery for further evaluation and recommendations. Review of Systems A 14 point review of systems was completed and was negative except as mentioned in HPI. Past Medical History Past Medical History: Diabetes Mellitus, Hyperlipidemia, Hypertension, Osteoarthritis (OA), Sleep Apnea/CPAP/BIPAP Additional Past Medical History / Comment(s): Diabetic neuropathy, herniated disc in back, constipation, past fall w/fx lt shoulder-no sx just wore a sling. Pneumonia VACCINE FEW YEARS AGO. History of Any Multi-Drug Resistant Organisms: None Reported Past Surgical History: Hernia Repair, Orthopedic Surgery, Tubal Ligation Additional Past Surgical History / Comment(s): Umbilical hernia repair, cataracts, lasik eye sx, rt total knee and hip replacement Past Anesthesia/Blood Transfusion Reactions: Family History of Problems w/ Anesthesia Additional Past Anesthesia/Blood Transfusion Reaction / Comm: brother had ponv Past Psychological History: No Psychological Hx Reported Smoking Status: Current every day smoker (Smokes 1 pack of cigarettes per day.) Past Alcohol Use History: None Reported Past Drug Use History: None Reported - Past Family History Mother Family Medical History: Diabetes Mellitus, Myocardial Infarction (CT) Additional Family Medical History / Comment(s): Father Family Medical History: Diabetes Mellitus, Myocardial Infarction (CT) Additional Family Medical History / Comment(s): Brother(s) Family Medical History: Myocardial Infarction (CT) Additional Family Medical History / Comment(s): Medications and Allergies Home Medications Medication Instructions Recorded Confirmed Type Albuterol Nebulized [Ventolin 2.5 mg INHALATION RT-Q4H PRN 02/14/15 06/04/18 History Nebulized] Estradiol 0.5 mg PO DAILY 02/14/15 06/04/18 History Gabapentin [Neurontin] 400 mg PO QID 02/14/15 06/04/18 History Insulin Lispro Protamin/Lispro 14 units SQ AC-BID 02/14/15 06/04/18 History [humaLOG Mix 75-25 Kwikpen] Multivitamins, Thera [Multivitamin 1 tab PO DAILY 02/14/15 06/04/18 History (formulary)] Pravastatin Sodium [Pravachol] 80 mg PO HS 02/14/15 06/04/18 History sitaGLIPtin PHOS/metFORMIN HCL 2 tab PO AC-SUPPER 02/14/15 06/04/18 History [Janumet Xr 50-1,000 mg Tablet] Atenolol 25 mg PO DAILY #0 03/01/15 06/04/18 Rx Lisinopril [Zestril] 10 mg PO DAILY #0 03/01/15 06/04/18 Rx Aspirin EC [Ecotrin Low Dose] 81 mg PO DAILY 06/04/18 06/04/18 History Allergies Allergy/AdvReac Type Severity Reaction Status Date / Time cobalt Allergy Unknown TESTED Verified 06/04/18 10:03 POSITIVE ON ALLERGY TESTING latex Allergy Unknown Rash/Hives Verified 06/04/18 10:03 thimerosal Allergy Unknown TESTED Verified 06/04/18 10:03 POSITIVE ON ALLERGY TEST Surgical - Exam Vital Signs Temp Pulse Resp BP Pulse Ox 98.2 F 114 H 18 147/77 100 06/04/18 09:41 06/04/18 09:41 06/04/18 09:41 06/04/18 09:41 06/04/18 09:41 - General well developed, well nourished, no distress, no pain, obese - ENT normal pinna, normal nares, normal mucosa, no hearing loss, no congestion, poor fpc (Lower teeth), dentures (Operative) - Neck Neck is supple, no lymphadenopathy. no masses, no bruits, trachea midline, no venous distension - Respiratory Lungs sounds essentially clear throughout. Respirations are symmetrical and nonlabored. No adventitious sounds. - Cardiovascular Regular rhythm and rate. S1 and S2 present, negative for S3, gallop or murmur. No edema present. - Abdomen Tenderness only with palpitation. No organomegaly. Abdomen: soft, non tender, bowel sounds (Positive to all 4 abdominal quadrants.) - Genitourinary Deferred - Rectum Deferred - Integumentary no rash, no growths, no abnormal pigmentation - Neurologic normal coordination, normal sensation - Musculoskeletal normal gait, normal posture - Psychiatric oriented to time, oriented to person, oriented to place, speech is normal, memory intact Results - Labs 06/05/18 09:25 06/05/18 09:25 Abnormal Lab Results - Last 24 Hours (Table) 06/04/18 06/04/18 06/04/18 Range/Units 10:30 10:30 15:40 RBC (3.80-5.40) m/uL Hgb (11.4-16.0) gm/dL Hct (34.0-46.0) % MCV (80.0-100.0) fL MCH (25.0-35.0) pg RDW (11.5-15.5) % Plt Count (150-450) k/uL Neutrophils # (1.3-7.7) k/uL ESR (0-20) mm/hr Chloride (98-107) mmol/L Glucose (74-99) mg/dL POC Glucose (mg/dL) (75-99) mg/dL Iron 21 L (50-170) ug/dL Iron Saturation 8.43 L (12.00-45.00) Ferritin 311.7 H (10.0-291.0) ng/mL AST (14-36) U/L C-Reactive Protein 138.4 H (<10.0) mg/L Albumin (3.5-5.0) g/dL TSH (0.465-4.680) mIU/L Rheumatoid Factor 90 H (0-15) IU/mL 06/04/18 06/04/18 06/04/18 Range/Units 15:40 16:38 18:18 RBC (3.80-5.40) m/uL Hgb (11.4-16.0) gm/dL Hct (34.0-46.0) % MCV (80.0-100.0) fL MCH (25.0-35.0) pg RDW (11.5-15.5) % Plt Count (150-450) k/uL Neutrophils # (1.3-7.7) k/uL ESR 120 H (0-20) mm/hr Chloride (98-107) mmol/L Glucose (74-99) mg/dL POC Glucose (mg/dL) 251 H 170 H (75-99) mg/dL Iron (50-170) ug/dL Iron Saturation (12.00-45.00) Ferritin (10.0-291.0) ng/mL AST (14-36) U/L C-Reactive Protein (<10.0) mg/L Albumin (3.5-5.0) g/dL TSH (0.465-4.680) mIU/L Rheumatoid Factor (0-15) IU/mL 06/05/18 06/05/18 06/05/18 Range/Units 07:29 09:25 09:25 RBC 3.63 L (3.80-5.40) m/uL Hgb 9.0 L (11.4-16.0) gm/dL Hct 28.5 L (34.0-46.0) % MCV 78.6 L (80.0-100.0) fL MCH 24.8 L (25.0-35.0) pg RDW 16.6 H (11.5-15.5) % Plt Count 564 H (150-450) k/uL Neutrophils # 7.8 H (1.3-7.7) k/uL ESR (0-20) mm/hr Chloride 108 H (98-107) mmol/L Glucose 219 H (74-99) mg/dL POC Glucose (mg/dL) 187 H (75-99) mg/dL Iron (50-170) ug/dL Iron Saturation (12.00-45.00) Ferritin (10.0-291.0) ng/mL AST 13 L (14-36) U/L C-Reactive Protein (<10.0) mg/L Albumin 3.2 L (3.5-5.0) g/dL TSH (0.465-4.680) mIU/L Rheumatoid Factor (0-15) IU/mL 06/05/18 06/05/18 Range/Units 09:25 12:18 RBC (3.80-5.40) m/uL Hgb (11.4-16.0) gm/dL Hct (34.0-46.0) % MCV (80.0-100.0) fL MCH (25.0-35.0) pg RDW (11.5-15.5) % Plt Count (150-450) k/uL Neutrophils # (1.3-7.7) k/uL ESR (0-20) mm/hr Chloride (98-107) mmol/L Glucose (74-99) mg/dL POC Glucose (mg/dL) 134 H (75-99) mg/dL Iron (50-170) ug/dL Iron Saturation (12.00-45.00) Ferritin (10.0-291.0) ng/mL AST (14-36) U/L C-Reactive Protein (<10.0) mg/L Albumin (3.5-5.0) g/dL TSH 0.172 L (0.465-4.680) mIU/L Rheumatoid Factor (0-15) IU/mL Microbiology - Last 24 Hours (Table) 06/04/18 12:07 Urine Culture - Preliminary Urine,Voided Diabetes panel 06/05/18 Range/Units 09:25 Sodium 139 (137-145) mmol/L Potassium 4.7 (3.5-5.1) mmol/L Chloride 108 H (98-107) mmol/L Carbon Dioxide 23 (22-30) mmol/L BUN 12 (7-17) mg/dL Creatinine 0.78 (0.52-1.04) mg/dL Glucose 219 H (74-99) mg/dL Calcium 8.9 (8.4-10.2) mg/dL AST 13 L (14-36) U/L ALT 17 (9-52) U/L Alkaline Phosphatase 65 (38-126) U/L Total Protein 6.7 (6.3-8.2) g/dL Albumin 3.2 L (3.5-5.0) g/dL Thyroid panel 06/05/18 Range/Units 09:25 TSH 0.172 L (0.465-4.680) mIU/L Calcium panel 06/05/18 Range/Units 09:25 Calcium 8.9 (8.4-10.2) mg/dL Albumin 3.2 L (3.5-5.0) g/dL Pituitary panel 06/05/18 06/05/18 Range/Units 09:25 09:25 Sodium 139 (137-145) mmol/L Potassium 4.7 (3.5-5.1) mmol/L Chloride 108 H (98-107) mmol/L Carbon Dioxide 23 (22-30) mmol/L BUN 12 (7-17) mg/dL Creatinine 0.78 (0.52-1.04) mg/dL Glucose 219 H (74-99) mg/dL Calcium 8.9 (8.4-10.2) mg/dL TSH 0.172 L (0.465-4.680) mIU/L Adrenal panel 06/05/18 Range/Units 09:25 Sodium 139 (137-145) mmol/L Potassium 4.7 (3.5-5.1) mmol/L Chloride 108 H (98-107) mmol/L Carbon Dioxide 23 (22-30) mmol/L BUN 12 (7-17) mg/dL Creatinine 0.78 (0.52-1.04) mg/dL Glucose 219 H (74-99) mg/dL Calcium 8.9 (8.4-10.2) mg/dL Total Bilirubin 0.3 (0.2-1.3) mg/dL AST 13 L (14-36) U/L ALT 17 (9-52) U/L Alkaline Phosphatase 65 (38-126) U/L Total Protein 6.7 (6.3-8.2) g/dL Albumin 3.2 L (3.5-5.0) g/dL - Imaging CT scan - abdomen: report reviewed CT scan - chest: report reviewed Assessment and Plan (1) Chronic mena-aortitis Current Visit: Yes Status: Acute Code(s): I77.6 - ARTERITIS, UNSPECIFIED SNOMED Code(s): 006428448 (2) Abnormal x-ray of lungs with single pulmonary nodule Current Visit: Yes Status: Acute Code(s): R91.1 - SOLITARY PULMONARY NODULE SNOMED Code(s): 488062543 (3) Abdominal pain Current Visit: Yes Status: Acute Code(s): R10.9 - UNSPECIFIED ABDOMINAL PAIN SNOMED Code(s): 85968012 (4) DVT prophylaxis Current Visit: No Status: Acute Code(s): TRX6854 - SNOMED Code(s): 142523138 (5) Hyperlipidemia Current Visit: No Status: Acute Code(s): E78.5 - HYPERLIPIDEMIA, UNSPECIFIED SNOMED Code(s): 46811446 (6) Type 2 diabetes mellitus Current Visit: No Status: Acute Code(s): E11.9 - TYPE 2 DIABETES MELLITUS WITHOUT COMPLICATIONS SNOMED Code(s): 08803355 Plan: The patient was seen and examined. Her chart and diagnostics were reviewed. Continue GI and DVT prophylaxis. Her case was discussed with Dr. Enrique from cardiothoracic surgery. Recommendations for rheumatology to see the patient and to initiate steroid treatment. No surgical intervention is warranted at this time. Recommend incentive spirometry every hour while awake. Medical management per primary care service. Discussed the importance of smoking cessation with the patient. Rheumatology consult pending. Thank you Dr. Do for this consult and we will look forward to working with you in the care of your patient. Time with Patient: Greater than 30
[2018-06-05 17:13] LABS: Glucose,Whole Blood 186 mg/dL (75-99)
[2018-06-05] MEDS: FERROUS SULFATE 325 MG TAB PO SCH (17:17)
[2018-06-05 20:18] LABS: Hemoglobin A1C 8.2 % (4.0-6.0)
[2018-06-05 20:44] LABS: Glucose,Whole Blood 144 mg/dL (75-99)
[2018-06-05] MEDS: DOCUSATE 100 MG CAP PO SCH (21:45)
[2018-06-05] MEDS: methylPREDNISolone SOD SUCCI 40 MG/ML 1 ML VIAL IV SCH (21:45)
[2018-06-05] MEDS: PRAVASTATIN SODIUM 80 MG TAB PO SCH (21:46)
[2018-06-05 23:29] VITALS: RESP 18
[2018-06-06] MEDS: methylPREDNISolone SOD SUCCI 40 MG/ML 1 ML VIAL IV SCH ×2 (00:01→06:35)
[2018-06-06 06:22] VITALS: BP 114/66; PULSE 78; TEMP 96.9
[2018-06-06 07:33] LABS: Glucose,Whole Blood 294 mg/dL (75-99)
[2018-06-06] MEDS: MULTIVITAMINS, THERA 1 EACH TAB PO SCH (07:52)
[2018-06-06] MEDS: ATENOLOL 25 MG TAB PO SCH (07:52)
[2018-06-06] MEDS: HEPARIN SODIUM,PORCINE 5,000 UNIT/ML 1 ML VIAL SQ SCH (07:52)
[2018-06-06] MEDS: ASPIRIN 81 MG PO SCH (07:52)
[2018-06-06] MEDS: FERROUS SULFATE 325 MG TAB PO SCH (07:52)
[2018-06-06] MEDS: INSULN ASP PRT/INSULIN ASPART 100 UNIT/ML 10 ML VIAL SQ SCH (07:52)
[2018-06-06] MEDS: GABAPENTIN 400 MG CAP PO SCH (07:52)
[2018-06-06] MEDS: DOCUSATE 100 MG CAP PO SCH (07:52)
[2018-06-06] MEDS: PANTOPRAZOLE 40 MG TABLET PO SCH (07:52)
[2018-06-06] MEDS: ESTRADIOL 0.5 MG TAB PO SCH (07:52)
[2018-06-06] MEDS: INSULIN ASPART 100 UNIT/ML 1 ML 10 ML VIAL SQ SCH (07:53)
--- NOTE | 2018-06-06 10:29 | P.DS ---
Providers Date of admission: 06/04/18 16:16 Expected date of discharge: 06/06/18 Attending physician: Mahendra Do Consults: 06/04/18 15:11 Consult Physician Routine Consulting Provider: Gerald Bowen Consult Reason/Comments: pulmonary nodule Do you want consulting provider notified?: Yes 06/05/18 14:41 Consult Physician Routine Consulting Provider: Gauri Cote Consult Reason/Comments: vasculitis Do you want consulting provider notified?: Yes 06/05/18 14:42 Consult Physician Routine Consulting Provider: Jose Alfredo Enrique Consult Reason/Comments: aortic vasculitis Do you want consulting provider notified?: Yes Primary care physician: [facility] Course: Diagnosis on discharge: 1. Abdominal pain with computed tomography scan of the chest abdomen and pelvis showing findings at felt to reflect aortic periaortitis, vasculitis or retroperitoneal fibrosis/mediastinal fibrosis. CRP and rheumatoid factor elevated. ANCA pending Patient was evaluated by rheumatology physician financial assistant and advised IV Solu- Medrol Dr. Cote is not available till next week 2. Nonspecific pulmonary nodule in the left lower lobe. Evaluated by pulmonary service 3. UTI: Continue Rocephin. Urine culture pending 4. Hyperkalemia: Resolved after Kayexalate. Repeat potassium 4.7. XOCHITL inhibitor was also discontinued 5. Iron deficiency anemia: Hemoglobin 9. Total iron 21. Start ferrous sulfate 325 mg twice a day. Also add Colace to prevent constipation 6. Diabetes mellitus type 2: Resume home insulin add sliding scale coverage. Hold metformin during hospitalization. Patient did receive contrast CAT scan 7. Essential hypertension 8. Hyperlipidemia 9. Nicotine dependence: Patient refused nicotine patch. Discussed smoking cessation for greater than 3 minutes 10. Obstructive sleep apnea uses CPAP at home 11. Thrombocytosis: Repeat CBC in a.m. GI prophylaxis Protonix and DVT prophylaxis subcu heparin Hospital course: This is a 77-year-old female with a known past medical history of hypertension, hyperlipidemia, diabetes mellitus, nicotine dependence, obstructive sleep apnea uses CPAP. She reports having abdominal pain since January. She had gone to see her PCP their concerns of constipation. However, patient reports having the abdominal pain before she had issues with constipation. She reports having daily bowel movements. No nausea or vomiting. Pain is worse after eating any type of food. Pain is across the abdomen. It can be sharp or achy at times. She denies any blood or black stools. Denies any nausea or vomiting. Denies any fever chills or sweats. Denies any chest pain or shortness of breath. She does admit to having some burning with urination. She does have evidence of UTI and will be started on Rocephin. Last night she had initially gone to the ER but left due to the weight and went to urgent care and was instructed to go to the ER for further imaging. Computed tomography scan of the abdomen and pelvis completed showing enhancing soft tissue surrounding the distal thoracic aorta as well as portions of the abdominal aorta which may reflect chronic periaortitis, vasculitis for retroperitoneal fibrosis or mediastinal fibrosis. There is also a left lower lobe pulmonary nodule noted. Computed tomography scan of the chest then ordered and findings felt to reflect aortic aortitis, vasculitis or retroperitoneal fibrosis/mediastinal fibrosis. No evidence for hemorrhage. Nonspecific pulmonary nodule. They recommend follow-up in 3 months. Cardiothoracic surgeon has been placed on consult. Patient does have a white count of 10.9 hemoglobin 9.6 platelets 625 potassium 5.5 and blood sugar 308. She has evidence of UTI. 06/05/2018 patient reporting some improvement in her abdominal pain. No nausea or vomiting. Denies any bowel movements. She is passing gas. White count normalized at 10.5 hemoglobin 9. Rheumatoid factor elevated at 90 CRP elevated at 138.4 and ANCA is pending. Patient denies any chest pain or shortness of breath. Still having decreased appetite . On 06/06/2018 patient is alert and oriented 3 in no apparent distress her abdominal pain has improved she is wishing to go home she was evaluated by rheumatology physician financial assistant who advised that patient should be on steroids she was started on IV Solu-Medrol she was also evaluated by pulmonary Dr. Zavala today was advised that patient is cleared for discharge on oral prednisone, patient will be followed as outpatient for further evaluation and treatment she was given a prescription for prednisone 30 mg by mouth daily she was educated about possible hyperglycemia and the need to increase insulin dose. Patient also has evidence of hyper thyroidism she has an appointment with Dr. Platt forming machine upkeep mechanic as outpatient on 06/10/2018 she was instructed to keep that appointment she will also be followed by rheumatology, primary care , and lpn care manager in the next 1 week. During this admission patient had evidence of anemia with hemoglobin of 9 she was given a prescription for Protonix 40 mg daily and iron sulfate 325 mg by mouth daily. During this admission patient had evidence of urinary tract infection she was given a prescription for Cipro 250 mg twice daily for 7 days at the time of discharge. Patient Condition at Discharge: Stable Plan - Discharge Summary Discharge Rx Participant: No New Discharge Prescriptions: New Ciprofloxacin HCl [Cipro] 250 mg PO BID tab Docusate [Colace] 100 mg PO BID cap Ferrous Sulfate [Iron (65 MG Elemental)] 325 mg PO BID-W/MEALS tab Pantoprazole [Protonix] 40 mg PO AC-BRKFST tablet. predniSONE 30 mg PO DAILY tab Continue Estradiol 0.5 mg PO DAILY Pravastatin Sodium [Pravachol] 80 mg PO HS Gabapentin [Neurontin] 400 mg PO QID Multivitamins, Thera [Multivitamin (formulary)] 1 tab PO DAILY Albuterol Nebulized [Ventolin Nebulized] 2.5 mg INHALATION RT-Q4H PRN PRN Reason: Shortness Of Breath sitaGLIPtin PHOS/metFORMIN HCL [Janumet Xr 50-1,000 mg Tablet] 2 tab PO AC- SUPPER Insulin Lispro Protamin/Lispro [humaLOG Mix 75-25 Kwikpen] 14 units SQ AC-BID Atenolol 25 mg PO DAILY #0 Lisinopril [Zestril] 10 mg PO DAILY #0 Aspirin EC [Ecotrin Low Dose] 81 mg PO DAILY Discharge Medication List Albuterol Nebulized [Ventolin Nebulized] 2.5 mg INHALATION RT-Q4H PRN 02/14/15 [ History] Estradiol 0.5 mg PO DAILY 02/14/15 [History] Gabapentin [Neurontin] 400 mg PO QID 02/14/15 [History] Insulin Lispro Protamin/Lispro [humaLOG Mix 75-25 Kwikpen] 14 units SQ AC-BID [History] Multivitamins, Thera [Multivitamin (formulary)] 1 tab PO DAILY 02/14/15 [History ] Pravastatin Sodium [Pravachol] 80 mg PO HS 02/14/15 [History] sitaGLIPtin PHOS/metFORMIN HCL [Janumet Xr 50-1,000 mg Tablet] 2 tab PO AC- SUPPER 02/14/15 [History] Atenolol 25 mg PO DAILY #0 03/01/15 [Rx] Lisinopril [Zestril] 10 mg PO DAILY #0 03/01/15 [Rx] Aspirin EC [Ecotrin Low Dose] 81 mg PO DAILY 06/04/18 [History] Ciprofloxacin HCl [Cipro] 250 mg PO BID tab 06/06/18 [Rx] Docusate [Colace] 100 mg PO BID cap 06/06/18 [Rx] Ferrous Sulfate [Iron (65 MG Elemental)] 325 mg PO BID-W/MEALS tab 06/06/18 [Rx ] Pantoprazole [Protonix] 40 mg PO AC-BRKFST tablet. 06/06/18 [Rx] predniSONE 30 mg PO DAILY tab 06/06/18 [Rx] Follow up Appointment(s)/Referral(s): Rachel Farfan MD [Primary Care Provider] - 1-2 days
--- NOTE | 2018-06-06 12:55 | P.PN ---
Subjective Progress Note Date: 06/06/18 Principal diagnosis: Solitary lung nodule, vasculitis This is a very pleasant 77-year-old female patient who follows with Dr. Farfan as her primary care physician. She has a history of diabetes mellitus, diabetic neuropathy, hyperlipidemia and chronic and ongoing tobacco dependence. She is not been seen by supervisor computer operations in the past. Not on any inhalers or oxygen at home. She presented here to the emergency room yesterday with complaints of abdominal pain that has been going on and off for approximately 2 months now. She has been seen by her PCP without any further evaluation or workup. Computed tomography scan here of the abdomen and pelvis revealed enhancing soft tissue surrounding the distal thoracic aorta as well as portions of the abdominal aorta which may reflect chronic periaortitis, vasculitis or retroperitoneal fibrosis/mediastinal fibrosis. Computed tomography scan of the chest was clear other than a nonspecific left lower lobe pulmonary nodule. We are consulted for the same. She is seen today in consultation on the regular medical floor. She is awake and alert in no acute distress. She has no pulmonary complaints. No shortness of breath, cough or congestion. No hemoptysis. She is maintaining good O2 saturations in the 90s on room air. Still with intermittent abdominal discomfort. CT services have been consulted. White count 10.5. Hemoglobin 9.0. Creatinine 0.78. Patient was reevaluated today on 06/06/2018, feeling better, denies any abdominal pain, denies any pulmonary symptoms no cough no wheezing no shortness of breath. Discussed again with the patient today showed her lung nodule and she will need a repeat CT of the chest in 4 months. Discussed patient with her vasculitis, patient could be empirically started on steroids, and should have follow-up with the automation architect. Discussed her condition with the admitting physician Dr. Do. Objective - Vital Signs Vital signs: Vital Signs Temp 96.9 F L 06/06/18 06:21 Pulse 78 06/06/18 06:21 Resp 18 06/06/18 06:21 BP 114/66 06/06/18 06:21 Pulse Ox 97 06/06/18 06:21 Intake & Output 06/05/18 06/06/18 06/06/18 18:59 06:59 18:59 Intake Total 750 Balance 750 Weight 68.946 kg Intake: Oral 750 Other: # Voids 3 2 - Exam Physical Exam: 77-year-old female in no distress. HEENT:[Neck is supple.] [No neck masses.] [No thyromegaly.] [No JVD.] Chest: [Clear throughout, no crackles, no rhonchi, no wheezes.] Cardiac Exam: [Normal S1 and S2, no S3 gallop, no murmur.] Abdomen: [Soft, nontender, no megaly, no rebound, no guarding, normal bowel sounds.] Extremities: [No clubbing, no edema, no cyanosis.] Neurological Exam: [No focal neurologic deficit.] - Labs CBC & Chem 7: 06/05/18 09:25 06/05/18 09:25 Labs: Abnormal Lab Results - Last 24 Hours (Table) 06/05/18 06/05/18 06/05/18 Range/Units 09:25 09:25 17:05 POC Glucose (mg/dL) 186 H (75-99) mg/dL Hemoglobin A1c 8.2 H (4.0-6.0) % TSH 0.172 L (0.465-4.680) mIU/L 06/05/18 06/06/18 Range/Units 20:43 07:20 POC Glucose (mg/dL) 144 H 294 H (75-99) mg/dL Hemoglobin A1c (4.0-6.0) % TSH (0.465-4.680) mIU/L Microbiology - Last 24 Hours (Table) 06/04/18 12:07 Urine Culture - Final Urine,Voided Assessment and Plan Assessment: #1 Abdominal pain with computed tomography scan results revealing enhancing soft tissue surrounding the distal thoracic aorta as well as portions of the abdominal aorta which may reflect chronic periaortitis, vasculitis or retroperitoneal fibrosis/mediastinal fibrosis.patient was started on Solu- Medrol yesterday, could be transitioned to oral prednisone at 30 mg daily and follow-up on outpatient basis with the automation architect. #2 Nonspecific single pulmonary nodule left lower lobe to be followed in the outpatient setting. Will need a follow-up CT of the chest in 4 months. #3 Diabetes mellitus. #4 Diabetic neuropathy. #5 Chronic and ongoing tobacco dependence. #6 Hyperlipidemia. Recommendation: Discussed her condition with Dr. Do, suggested discharge planning and follow-up with me in 4 months, follow-up with the automation architect regarding her vasculitis, some of the workup is pending and I initiated some of the workup couple of days ago. Time with Patient: Less than 30
[2018-06-06] MEDS ORDERED: CIPROFLOXACIN HCL 250 MG TAB PO SCH (21:00)
[2018-06-07] MEDS ORDERED: predniSONE 10 MG TAB PO SCH (09:00)
== END 2018-06-06 11:27 | disposition home or self-care (01) | DRG 545 ==
LOC: EC 09:39 → 4MS4W 16:16
PROVIDERS: ADMIT Internal Medicine; ATTEND Internal Medicine
DX: I77.6 Arteritis, unspecified (principal); J98.59 Other diseases of mediastinum, not elsewhere classified; N39.0 Urinary tract infection, site not specified; E87.5 Hyperkalemia; E11.40 Type 2 diabetes mellitus with diabetic neuropathy, unspecified; D50.9 Iron deficiency anemia, unspecified; N13.5 Crossing vessel and stricture of ureter without hydronephrosis; R91.1 Solitary pulmonary nodule; D47.3 Essential (hemorrhagic) thrombocythemia; G25.81 Restless legs syndrome; K59.00 Constipation, unspecified; I10 Essential (primary) hypertension; G47.33 Obstructive sleep apnea (adult) (pediatric); E78.5 Hyperlipidemia, unspecified; M19.90 Unspecified osteoarthritis, unspecified site; F17.210 Nicotine dependence, cigarettes, uncomplicated; Z71.6 Tobacco abuse counseling; Z79.82 Long term (current) use of aspirin; Z79.890 Hormone replacement therapy; Z79.4 Long term (current) use of insulin; Z79.899 Other long term (current) drug therapy; Z96.651 Presence of right artificial knee joint; Z96.649 Presence of unspecified artificial hip joint; Z98.51 Tubal ligation status; Z99.89 Dependence on other enabling machines and devices; Z88.8 Allergy status to other drugs, medicaments and biological substances; Z91.040 Latex allergy status; Z91.048 Other nonmedicinal substance allergy status; Z82.49 Family history of ischemic heart disease and other diseases of the circulatory system; Z83.3 Family history of diabetes mellitus
CPT/HCPCS: 36415; 71250; 74177; 80053; 81001; 82150; 82728; 83036; 83540; 83550; 83690; 84439; 84443; 85025; 85652; 86140; 86255; 86431; 86780; 87086; 96360; 99285

== ENCOUNTER → 2018-09-08 | Outpatient (CLI) | payer MEDICARE | END | disposition home or self-care (01) | LOC: RADCTMAIN 07:54 | PROVIDERS: ATTEND Internal Medicine Rheumatology | DX: M31.6 Other giant cell arteritis (principal) | CPT/HCPCS: 82565; 84520 ==

== ENCOUNTER → 2018-11-26 | Outpatient (CLI) | payer MEDICARE ==
--- NOTE | 2018-11-26 17:42 | CT ---
EXAMINATION TYPE: CT abdomen pelvis wo con DATE OF EXAM: 11/26/2018 COMPARISON: 06/04/2018 HISTORY: abdominal pain x [address] DLP: 375 mGycm Automated exposure control for dose reduction was used. TECHNIQUE: Helical acquisition of images was performed from the lung bases through the pelvis. FINDINGS: Lung bases are clear of consolidation. There is some atelectasis at the left lung base. There is 10 m m noncalcified nodule adjacent to the left ventricle at the diaphragm. There is focal calcified pleur al plaque left lower lobe. There is no pleural effusion. Heart appears slightly enlarged. There is at herosclerotic vascular calcification. 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 Abdominal aorta is atheromatous with increased concentr ic density around the abdominal aorta. This measures up to 10 mm. Liver shows no focal defect. Spleen appears normal. Stomach has normal size. Gallbladder appears norm al. Bile ducts are not dilated. There is no evidence of pancreatic mass. There is no adrenal mass. Kidneys have normal size. There is no hydronephrosis. There is no retroperi toneal adenopathy. There is right hip prosthesis. Bladder distends smoothly. There is no free fluid i n the pelvis. There is no sign of a bowel obstruction. Appendix appears normal. Appendix measures up to 7 mm. There is calcified uterine fibroids. There is no evidence of free air. There is no ascites. There is no mesenteric edema. IMPRESSION: STABLE LEFT LOWER LOBE NODULE AT THE LEFT DIAPHRAGM ADJACENT TO THE HEART. SCARRING AND ATELECTASIS L EFT LUNG BASE UNCHANGED. CHRONIC PERIAORTIC DENSITY CONSISTENT WITH AORTITIS NOT SIGNIFICANTLY DIFFERENT THAN OLD CT SCAN. 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
== END | disposition home or self-care (01) ==
LOC: RADCTMAIN 15:08
PROVIDERS: ATTEND Family Medicine
DX: I71.4 Abdominal aortic aneurysm, without rupture (principal)
CPT/HCPCS: 74176

== ENCOUNTER → 2018-12-23 | Outpatient (CLI) | payer MEDICARE ==
--- NOTE | 2018-12-23 14:28 | MM ---
Reason for exam: screening (asymptomatic). Last mammogram was performed 1 year and 1 month ago. History: Patient is postmenopausal. 2 excisional biopsies of the left breast. Physical Findings: A clinical breast exam by your physician is recommended on an annual basis and results should be correlated with mammographic findings. MG 3D Screening Mammo W/Cad Bilateral CC and MLO view(s) were taken. Prior study comparison: November 20, 2017, bilateral MG 3d screening mammo w/cad. July 19, 2016, bilateral MG 3d screening mammo w/cad. There are scattered fibroglandular densities. There are benign appearing round dystrophic calcifications bilaterally. There is chronic nodularity bilaterally. This finding is changed when compared with previous exams, right nodularity increased in size. ASSESSMENT: Incomplete: need additional imaging evaluation, BI-RAD 0 RECOMMENDATION: Ultrasound of the right breast. [facility] will attempt to contact patient to return for ultrasound.
== END | disposition home or self-care (01) ==
LOC: RADMAMWWP 10:21
PROVIDERS: ATTEND Family Medicine
DX: Z12.31 Encounter for screening mammogram for malignant neoplasm of breast (principal)
CPT/HCPCS: 77063; 77067

== ENCOUNTER → 2018-12-29 | Outpatient (CLI) | payer MEDICARE ==
--- NOTE | 2018-12-30 11:31 | USB ---
Reason for exam: additional evaluation requested from abnormal screening. History: Patient is postmenopausal. 2 excisional biopsies of the left breast. Physical Findings: Nurse did not find any significant physical abnormalities on exam. (nurse shiela). US Breast Workup RT Right complete breast ultrasound includes all four quadrants, the retroareolar region and axilla. Finding demonstrates a 0.5 x 0.2 x 0.5 cm cystic lesion at 7 o'clock that corresponds with the mammographic findings. ASSESSMENT: Benign, BI-RAD 2 RECOMMENDATION: Return to routine screening mammogram schedule for both breasts. Patient was given results on 12/29/18.
== END | disposition home or self-care (01) ==
LOC: RADUSWWP 09:21
PROVIDERS: ATTEND Family Medicine
DX: R92.8 Other abnormal and inconclusive findings on diagnostic imaging of breast (principal)

== ENCOUNTER 2019-03-03 07:41 | Day surgery (SDC) | payer MEDICARE ==
[2019-03-01 15:19] VITALS: BMI 27.3
[~2019-03-03 07:41] MED LIST: LACTATED RINGERS 1,000 ML IV SCH; LIDOCAINE 1% 20 ML VIAL (10MG/ML) FOR IV START INTRADERMA PRN
[2019-03-03 08:05] VITALS: RESP 18; TEMP 97.8
[2019-03-03 08:10] LABS: Glucose,Whole Blood 197 mg/dL (75-99)
[2019-03-03] MEDS ORDERED: PROPOFOL 10 MG/ML 20 ML VIAL IV ONE (08:30)
[2019-03-03] MEDS ORDERED: LIDOCAINE 1% INJ 10MG/ML (20 ML MDV) ONE (08:30)
--- NOTE | 2019-03-03 08:50 | P.PCN ---
Date of Procedure: 03/03/19 Procedure(s) Performed: BRIEF HISTORY: Patient is a 78-year-old, pleasant, female, scheduled for an upper endoscopy as a part of evaluation of epigastric pain, early satiety and progressive weight loss of 30 pounds in the last 1 year duration. She denies any heartburn. He reports no odynophagia or dysphagia. In view of the symptoms she is scheduled for an upper endoscopy to evaluate further.. PROCEDURE PERFORMED: Esophagogastroduodenoscopy with biopsy. PREOPERATIVE DIAGNOSIS:. Epigastric pain, early satiety and weight loss of 30 pounds of 1 year duration. IV sedation per anesthesia. PROCEDURE: After informed consent was obtained, the patient was brought into the endoscopy unit. IV sedation was administered by Anesthesia under continuous monitoring. Initially the Olympus GIF-140 video endoscope was inserted into the mouth. Esophagus intubated without any difficulty. It was gradually advanced into the stomach and duodenum and carefully examined. The bulb and the second part of the duodenum appeared normal. Biopsies were done from the duodenum to rule out celiac disease. The scope at this time was withdrawn to the stomach, adequately insufflated with air, and upon careful examination, mucosa of the antrum, had mild gastritis and biopsies were done from this area. The body, ca rdia and the fundus appeared normal. The scope was then withdrawn into the esophagus. The GE junction was located at 39 cm from the incisors. There was some antral erythema the GE junction consistent with LA grade a reflux esophagitis. Rest of esophagus appeared normal and the patient tolerated the procedure well. IMPRESSION: 1. Mild antral gastritis. 2. LA grade a reflux esophagitis RECOMMENDATIONS: The findings of this examination were discussed with the patient as well as a family. She'll give and she'll be given a trial of Prilosec 20 mg twice daily half hour before breakfast and dinnertime and follow antireflux measures. She'll be seen in office in 3-4 weeks..
[2019-03-03 09:07] VITALS: BP 121/64; PULSE 75
== END 2019-03-03 09:50 | disposition home or self-care (01) ==
LOC: ORWHC2ENDO 07:41
PROVIDERS: ATTEND Internal Medicine Gastroenterology
DX: K21.0 Gastro-esophageal reflux disease with esophagitis (principal); K29.50 Unspecified chronic gastritis without bleeding; Z88.8 Allergy status to other drugs, medicaments and biological substances; Z91.040 Latex allergy status; G47.33 Obstructive sleep apnea (adult) (pediatric); F17.210 Nicotine dependence, cigarettes, uncomplicated; E11.9 Type 2 diabetes mellitus without complications
CPT/HCPCS: 88305; 43239; J2001; J2704

== ENCOUNTER → 2019-03-24 | Outpatient (CLI) | payer MEDICARE ==
--- NOTE | 2019-03-24 14:00 | CT ---
EXAMINATION TYPE: CT chest wo con DATE OF EXAM: 03/24/2019 COMPARISON: Chest CT June 04, 2018 HISTORY: Pulmonary nodule CT DLP: 494 mGycm. Automated Exposure Control for Dose Reduction was Utilized. TECHNIQUE: CT scan of the thorax is performed without IV contrast. FINDINGS: LUNGS: Mild emphysematous change redemonstrated. Mild scattered parenchymal linear scarring of the lo wer lungs. Stable left lower lobe nodule or nodular consolidation posterior to the heart axial image 36 measuring 1.5 x 1.0 cm. No pleural effusion or pneumothorax. MEDIASTINUM: Lack of IV contrast is noted to limit evaluation for mediastinal and especially hilar ad enopathy. There are no definitive greater than 1 cm hilar or mediastinal lymph nodes. No paracardia l effusion is seen. Cardiomegaly redemonstrated with mild to moderate left atrial dilatation. Moderat e to severe three-vessel coronary artery calcification and/or stents. Persistent atherosclerotic and aneurysmal thoracic aorta with peripheral calcification and abnormal soft tissue along the periphery of the calcification not significantly changed from prior CT could reflect contain hemorrhage or sign ificant noncalcified plaque extends into the visualized portion of the abdominal aorta. Findings coul d reflect product of prior infection, fibrosis, or vasculitis. Correlate clinically. OTHER: Scoliotic curvature with multilevel spurring in the spine. IMPRESSION: Overall stable findings, stable 1.5 x 1.0 cm anterior left lower lobe nodule or nodular c onsolidation. Consider repeat CT in 3-[address] follow-up.
== END | disposition home or self-care (01) ==
LOC: RADCTMAIN 11:45
PROVIDERS: ATTEND Internal Medicine
DX: R91.8 Other nonspecific abnormal finding of lung field (principal); Z91.040 Latex allergy status
CPT/HCPCS: 71250

== ENCOUNTER → 2019-11-09 | Outpatient (CLI) | payer MEDICARE ==
--- NOTE | 2019-11-09 13:38 | CT ---
EXAMINATION TYPE: CT chest wo con DATE OF EXAM: 11/09/2019 COMPARISON: 03/24/2019 HISTORY: Previouys abnormal exam lung connelly CT DLP: 445 mGycm. Automated Exposure Control for Dose Reduction was Utilized. TECHNIQUE: CT scan of the thorax is performed without IV contrast. FINDINGS: LUNGS: Mild emphysematous change redemonstrated. Mild scattered parenchymal linear scarring of the lo wer lungs. There is a left lower lobe nodule or nodular consolidation posterior to the heart measurin g 1.6 x 1.0 cm. No pleural effusion or pneumothorax. Interlobular septal thickening at the lung bases with areas of bronchiectasis suggestive of chronic interstitial lung disease. Apical pleural thicken ing. . MEDIASTINUM: Lack of IV contrast is noted to limit evaluation for mediastinal and especially hilar ad enopathy. There are no definitive greater than 1 cm hilar or mediastinal lymph nodes. Cardiomegaly redemonstrated with mild to moderate left atrial dilatation. Moderate to severe three-vessel coronary artery calcification and/or stents. Persistent atherosclerotic and aneurysmal thoracic aorta with pe ripheral calcification and abnormal soft tissue along the periphery of the calcification not signific antly changed from prior CT could reflect contain hemorrhage or significant noncalcified plaque exten ds into the visualized portion of the abdominal aorta. Findings could reflect product of prior infect ion, fibrosis, or vasculitis. Correlate clinically. . OTHER: Multilevel degenerative changes noted. IMPRESSION: 1. There is a 1.6 x 1 cm nodular consolidation or pulmonary nodule in the left lower lobe which previ ously measured 1.5 x 1.0 cm. Correlate with PET scan as clinically warranted. 2. Persistent abnormal appearance of the thoracic aorta with atherosclerotic change and abnormal soft tissue attenuation along the periphery. As previously noted this could represent a contained hemorrh age, infection, fibrosis or vasculitis in the differential diagnosis correlate clinically. This is al so noted dating back to the CT of the abdomen dated 06/04/2018. Maximal AP dimension measures 3.8 cm co mpatible with mild aneurysmal dilation. 3. COPD and findings suggestive of chronic interstitial lung disease with mild basilar bronchiectasis .
== END | disposition home or self-care (01) ==
LOC: RADCTMAIN 12:17
PROVIDERS: ATTEND Internal Medicine
DX: R91.1 Solitary pulmonary nodule (principal); J44.9 Chronic obstructive pulmonary disease, unspecified; I70.0 Atherosclerosis of aorta; Z91.040 Latex allergy status; Z91.048 Other nonmedicinal substance allergy status; Z88.7 Allergy status to serum and vaccine
CPT/HCPCS: 71250

== ENCOUNTER 2020-02-29 23:22 | Emergency (ER) | payer MEDICARE ==
[2020-02-29 23:29] VITALS: TEMP 97.9
--- NOTE | 2020-02-29 23:32 | ED ---
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 Patient reports she had routine blood work done earlier today and got a call late night that her potassium was elevated she's not sure what the number is but was told she had come to hospital. Patient denies any acute complaints. - Related Data Home Medications Medication Instructions Recorded Confirmed Gabapentin [Neurontin] 400 mg PO QID 02/14/15 03/03/19 Insulin Lispro Protamin/Lispro 30 units SQ QAM 02/14/15 03/03/19 [humaLOG Mix 75-25 Kwikpen] Multivitamins, Thera [Multivitamin 1 tab PO DAILY 02/14/15 03/03/19 (formulary)] Pravastatin Sodium [Pravachol] 80 mg PO HS 02/14/15 03/03/19 Aspirin EC [Ecotrin Low Dose] 81 mg PO DAILY 06/04/18 03/03/19 INSULIN LISPRO (humaLOG) [humaLOG] 25 units SQ HS 03/01/19 03/03/19 atenoloL [Atenolol] 25 mg PO QAM 03/01/19 03/03/19 lisinopriL [Zestril] 10 mg PO QAM 03/01/19 03/03/19 Previous Rx's Medication Instructions Recorded Docusate [Colace] 100 mg PO BID cap 06/06/18 Ferrous Sulfate [Iron (65 MG 325 mg PO BID-W/MEALS tab 06/06/18 Elemental)] Allergies Allergy/AdvReac Type Severity Reaction Status Date / Time cobalt Allergy Unknown TESTED Verified 02/29/20 23:29 POSITIVE ON ALLERGY TESTING latex Allergy Unknown Rash/Hives Verified 02/29/20 23:29 thimerosal Allergy Unknown TESTED Verified 02/29/20 23:29 POSITIVE ON ALLERGY TEST Review of Systems ROS Statement: Those systems with pertinent positive or pertinent negative responses have been documented in the HPI. ROS Other: All systems not noted in ROS Statement are negative. Past Medical History Past Medical History: Diabetes Mellitus, Hyperlipidemia, Hypertension, Osteoarthritis (OA), Sleep Apnea/CPAP/BIPAP Additional Past Medical History / Comment(s): Recent abnormal weight loss. Diabetic neuropathy in legs, herniated disc in back, constipation, past fall 2 yrs ago with fractured left shoulder, CPAP use. History of Any Multi-Drug Resistant Organisms: None Reported Past Surgical History: Hernia Repair, Joint Replacement, Tubal Ligation Additional Past Surgical History / Comment(s): Umbilical hernia repair, bilateral cataracts removed, lasik eye surgery, right knee replacement, right hip replacement. Past Anesthesia/Blood Transfusion Reactions: Family History of Problems w/ Anesthesia, Motion Sickness Additional Past Anesthesia/Blood Transfusion Reaction / Comment(s): Brother had PONV. Past Psychological History: No Psychological Hx Reported Smoking Status: Current every day smoker Past Alcohol Use History: None Reported Past Drug Use History: None Reported - Past Family History Mother Family Medical History: Diabetes Mellitus, Myocardial Infarction (PA) Additional Family Medical History / Comment(s): Father Family Medical History: Diabetes Mellitus, Myocardial Infarction (PA) Additional Family Medical History / Comment(s): Brother(s) Family Medical History: Myocardial Infarction (PA) Additional Family Medical History / Comment(s): General Exam Limitations: no limitations Course Vital Signs 02/29/20 03/01/20 23:23 00:53 Temperature 97.9 F Pulse Rate 64 64 Respiratory 16 18 Rate Blood Pressure 196/78 164/86 O2 Sat by Pulse 97 99 Oximetry Medical Decision Making - Medical Decision Making Outpatient labs reviewed patient's potassium was noted to be 6.3 Repeat labs were ordered EKG with no abnormalities Repeat potassium 5.6, elevated BUN and creatinine, patient is hypoglycemic, she will be given IV fluid bolus as well as D5, and addition she drinks 3 boxes of a pple juice We will hydrate the patient plan to discharge her home for continued outpatient management Patient's glucose improved patient was comfortable with plan for discharge home - Lab Data Result diagrams: 02/29/20 23:43 02/29/20 23:43 Lab Results 02/29/20 02/29/20 03/01/20 Range/Units 23:43 23:43 01:26 WBC 10.5 (3.8-10.6) k/uL RBC 4.36 (3.80-5.40) m/uL Hgb 11.5 (11.4-16.0) gm/dL Hct 37.1 (34.0-46.0) % MCV 85.1 (80.0-100.0) fL MCH 26.3 (25.0-35.0) pg MCHC 31.0 (31.0-37.0) g/dL RDW 16.2 H (11.5-15.5) % Plt Count 368 (150-450) k/uL Neutrophils % 66 % Lymphocytes % 26 % Monocytes % 4 % Eosinophils % 2 % Basophils % 0 % Neutrophils # 6.9 (1.3-7.7) k/uL Lymphocytes # 2.7 (1.0-4.8) k/uL Monocytes # 0.5 (0-1.0) k/uL Eosinophils # 0.2 (0-0.7) k/uL Basophils # 0.0 (0-0.2) k/uL Hypochromasia Slight Anisocytosis Slight Sodium 139 (137-145) mmol/L Potassium 5.6 H (3.5-5.1) mmol/L Chloride 107 (98-107) mmol/L Carbon Dioxide 25 (22-30) mmol/L Anion Gap 7 mmol/L BUN 28 H (7-17) mg/dL Creatinine 1.75 H (0.52-1.04) mg/dL Est GFR (CKD-EPI)AfAm 31 (>60 ml/min/1.73 sqM) Est GFR (CKD-EPI)NonAf 27 (>60 ml/min/1.73 sqM) Glucose 64 L (74-99) mg/dL POC Glucose (mg/dL) 99 (75-99) mg/dL POC Glu Machine Records Units Supervisor ID Fabian Cr Calcium 9.3 (8.4-10.2) mg/dL Magnesium 1.9 (1.6-2.3) mg/dL Total Bilirubin 0.6 (0.2-1.3) mg/dL AST 26 (14-36) U/L ALT <6 (4-34) U/L Alkaline Phosphatase 90 (38-126) U/L Total Protein 8.2 (6.3-8.2) g/dL Albumin 4.2 (3.5-5.0) g/dL - EKG Data -: EKG Interpreted by Me EKG Comments: EKG was obtained due to hyperkalemia noted on outpatient labs, EKG was obtained at 2345, rate of 64 rhythm is sinus there is a normal axis, normal intervals, NJ 148, QRS 74, QTC 416 there are no acute ST elevations or depressions no evidence of acute ischemia or infarction. There is no peaking of the T waves are significant T-wave abnormality indicative of critical hyperkalemia. Disposition Clinical Impression: BOWEN (acute kidney injury), Hyperkalemia, Type 2 diabetes mellitus Disposition: HOME SELF-CARE Condition: Stable Additional Instructions: As we discussed her potassium was mildly elevated today, he labs appeared to be that the room mildly dehydrated. Please make sure drinking plenty of water Follow with regular doctor for repeat labs later this week Is patient prescribed a controlled substance at d/c from ED?: No Referrals: Rachel Farfan MD [Primary Care Provider] - 1-2 days
[2020-03-01] LABS: Anisocytosis Slight; Basophils % (A) 0 %; Eosinophils # (A) 0.2 k/uL (0-0.7); Eosinophils % (A) 2 %; HCT 37.1 % (34.0-46.0); HGB 11.5 gm/dL (11.4-16.0); Hypochromasia Slight; Lymphocytes # (A) 2.7 k/uL (1.0-4.8); Lymphocytes % (A) 26 %; MCH 26.3 pg (25.0-35.0); MCV 85.1 fL (80.0-100.0); Mean Platelet Volume 7.2; Monocytes # (A) 0.5 k/uL (0-1.0); Monocytes % (A) 4 %; Neutrophils # (A) 6.9 k/uL (1.3-7.7); Neutrophils % (A) 66 %; Platelet Count 368 k/uL (150-450); RBC 4.36 m/uL (3.80-5.40); RDW 16.2 % (11.5-15.5); WBC 10.5 k/uL (3.8-10.6)
[2020-03-01 00:12] VITALS: PULSE 64
[2020-03-01 00:14] LABS: ALT <6 U/L (4-34); AST 26 U/L (14-36); African American GFR (CKD) 31 (>60 ml/min/1.73 sqM); Albumin 4.2 g/dL (3.5-5.0); Alkaline Phosphatase 90 U/L (38-126); Anion Gap 7 mmol/L; Blood Urea Nitrogen 28 mg/dL (7-17); Calcium 9.3 mg/dL (8.4-10.2); Carbon Dioxide 25 mmol/L (22-30); Chloride 107 mmol/L (98-107); Glucose 64 mg/dL (74-99); Magnesium 1.9 mg/dL (1.6-2.3); Non-African American GFR(CKD) 27 (>60 ml/min/1.73 sqM); Sodium 139 mmol/L (137-145); Total Bilirubin 0.6 mg/dL (0.2-1.3); Total Protein 8.2 g/dL (6.3-8.2)
[2020-03-01 00:38] LABS: Potassium 5.6 mmol/L (3.5-5.1)
[2020-03-01] MEDS ORDERED: SODIUM CHLORIDE 0.9% 500 ML 500 ML IV STA (00:39)
[2020-03-01] MEDS ORDERED: INSULIN REGULAR 100 UNIT/ML VIAL IV ONE (00:39)
[2020-03-01 00:54] VITALS: BP 164/86; RESP 18
[2020-03-01] MEDS ORDERED: DEXTROSE 5%-0.9% NACL 1,000 ML IV SCH (01:00)
[2020-03-01 01:28] LABS: Glucose,Whole Blood 99 mg/dL (75-99)
== END 2020-03-01 01:41 | disposition home or self-care (01) ==
LOC: EC 23:22
DX: E11.649 Type 2 diabetes mellitus with hypoglycemia without coma (principal); N17.9 Acute kidney failure, unspecified; E87.5 Hyperkalemia; E11.22 Type 2 diabetes mellitus with diabetic chronic kidney disease; E11.40 Type 2 diabetes mellitus with diabetic neuropathy, unspecified; I12.9 Hypertensive chronic kidney disease with stage 1 through stage 4 chronic kidney disease, or unspecified chronic kidney disease; N18.9 Chronic kidney disease, unspecified; E78.5 Hyperlipidemia, unspecified; M19.90 Unspecified osteoarthritis, unspecified site; G47.30 Sleep apnea, unspecified; F17.200 Nicotine dependence, unspecified, uncomplicated; Z79.4 Long term (current) use of insulin; Z79.899 Other long term (current) drug therapy; Z79.82 Long term (current) use of aspirin; Z91.048 Other nonmedicinal substance allergy status; Z88.8 Allergy status to other drugs, medicaments and biological substances; Z91.040 Latex allergy status; Z96.651 Presence of right artificial knee joint; Z96.641 Presence of right artificial hip joint; Z99.89 Dependence on other enabling machines and devices
CPT/HCPCS: 36415; 80053; 83735; 85025; 93005; 96361; 96374; 99282

== ENCOUNTER → 2020-02-29 | Outpatient (CLI) | payer MEDICARE ==
[2020-02-29 21:49] LABS: African American GFR (CKD) 30.5 (60.0-200.0); BUN/Creat Ratio 14.44 Ratio (12.00-20.00); Calcium 8.9 mg/dL (8.7-10.3)
[2020-02-29 22:02] LABS: Non-African American GFR(CKD) 26.3 (60.0-200.0)
[2020-03-01 08:54] LABS: Potassium 6.3 mmol/L (3.5-5.5)
== END | disposition home or self-care (01) ==
LOC: LABWHC1 10:24
PROVIDERS: ATTEND Internal Medicine Cardiovascular Disease
DX: E87.5 Hyperkalemia (principal)
CPT/HCPCS: 36415; 80048

== ENCOUNTER → 2020-04-07 | Outpatient (CLI) | payer MEDICARE ==
[2020-04-07 10:46] LABS: Calcium 9.1 mg/dL (8.4-10.2); Potassium 5.5 mmol/L (3.5-5.1)
--- NOTE | 2020-04-10 11:09 | MM ---
Reason for exam: screening (asymptomatic). Last mammogram was performed 1 year and 3 months ago. History: Patient is postmenopausal. 2 excisional biopsies of the left breast. Physical Findings: A clinical breast exam by your physician is recommended on an annual basis and results should be correlated with mammographic findings. MG 3D Screening Mammo W/Cad Bilateral CC and MLO view(s) were taken. Prior study comparison: December 23, 2018, bilateral MG 3d screening mammo w/cad. November 20, 2017, bilateral MG 3d screening mammo w/cad. There are scattered fibroglandular densities. Stable benign calcifications. There is no discrete abnormality. No significant changes when compared with prior studies. ASSESSMENT: Benign, BI-RAD 2 RECOMMENDATION: Routine screening mammogram of both breasts in 1 year.
== END | disposition home or self-care (01) ==
LOC: RADMAMWWP 09:01
PROVIDERS: ATTEND Family Medicine
DX: Z12.31 Encounter for screening mammogram for malignant neoplasm of breast (principal); R79.89 Other specified abnormal findings of blood chemistry
CPT/HCPCS: 77063; 77067; 80048

== ENCOUNTER → 2020-04-07 | Outpatient (CLI) | payer MEDICARE ==
--- NOTE | 2020-04-09 22:04 | CT ---
EXAMINATION TYPE: CT chest wo con DATE OF EXAM: 04/07/2020 COMPARISON: CT chest 11/09/2019, CT chest 06/04/2018. HISTORY: Abnormal Lung field CT DLP: 378.8 mGycm Automated exposure control for dose reduction was used. CONTRAST: CT scan of the chest is performed without intravenous contrast. FINDINGS: LUNGS: There is a redemonstrated 1.5 x 1.0 cm pulmonary nodule of the left lower lobe (4:38), [facility] comparison. Bronchiectasis of the lung bases, emphysematous changes, and intersti tial coarsening redemonstrated. No pleural effusion. No pneumothorax. The tracheobronchial tree is pa tent. MEDIASTINUM/SOFT TISSUES: No axillary or hilar lymphadenopathy greater than 1 cm. Prominent precarina l lymph node measures 12 mm, unchanged. Redemonstrated cardiomegaly and calcified coronary artery dis ease. No pericardial effusion. There is redemonstrated ascending thoracic aortic aneurysm measuring 4 .0 cm. The descending thoracic aorta redemonstrated aneurysmal dilatation and abnormal soft tissue al abby the periphery of the calcified atherosclerotic disease. UPPER ABDOMEN: No adrenal nodule. OSSEOUS: Degenerative changes of the spine. IMPRESSION: Left lower lobe 1.5 x 1.0 cm nodule unchanged versus 06/04/2018.
== END | disposition home or self-care (01) ==
LOC: RADCTMAIN 08:35
PROVIDERS: ATTEND Internal Medicine
DX: R91.1 Solitary pulmonary nodule (principal)
CPT/HCPCS: 71250

== ENCOUNTER → 2020-05-17 | Outpatient (CLI) | payer MEDICARE ==
--- NOTE | 2020-05-17 09:52 | US ---
EXAMINATION TYPE: US kidneys/renal and bladder DATE OF EXAM: 05/17/2020 COMPARISON: NONE CLINICAL HISTORY: N18.3 CKD Stage 3. EXAM MEASUREMENTS: Right Kidney: 7.8 x 3.2 x 3.8 cm Left Kidney: 9.8 x 4.2 x 4.4 cm Right Kidney: measures small Left Kidney: No hydronephrosis or masses seen Bladder: wnl There is no evidence for hydronephrosis at this point in time. No nephrolithiasis is seen. No bogdan s are identified. The urinary bladder is anechoic. Bilateral ureteral jets are seen. IMPRESSION: Diminutive right kidney. Otherwise unremarkable study.
[2020-05-17 10:31] LABS: Basophils # (A) 0.1 k/uL (0-0.2); Basophils % (A) 1 %; Eosinophils # (A) 0.1 k/uL (0-0.7); Eosinophils % (A) 1 %; HCT 39.5 % (34.0-46.0); HGB 12.3 gm/dL (11.4-16.0); Hypochromasia Slight; Lymphocytes # (A) 2.3 k/uL (1.0-4.8); Lymphocytes % (A) 18 %; MCH 28.3 pg (25.0-35.0); MCHC 31.2 g/dL (31.0-37.0); MCV 90.8 fL (80.0-100.0); Mean Platelet Volume 8.4; Monocytes # (A) 0.5 k/uL (0-1.0); Monocytes % (A) 4 %; Neutrophils # (A) 9.7 k/uL (1.3-7.7); Neutrophils % (A) 75 %; Platelet Count 335 k/uL (150-450); RBC 4.36 m/uL (3.80-5.40); RDW 15.5 % (11.5-15.5)
[2020-05-17 10:39] LABS: Appearance,Urine Clear (Clear); Bacteria,Urine Occasional /hpf; Bilirubin,Urine Negative (Negative); Blood,Urine Trace (Negative); Color,Urine Colorless; Glucose,Urine (UA) Negative (Negative); Ketones,Urine Negative (Negative); Leukocyte Esterase,Urine Trace (Negative); Mucus,Urine Rare /hpf; Nitrite,Urine Negative (Negative); Protein,Urine Negative (Negative); Specific Gravity,Urine 1.003 (1.001-1.035); Squamous Epithelial Cell,Urine 1 /hpf (0-4); Urobilinogen,Urine <2.0 mg/dL (<2.0); WBC,Urine 2 /hpf (0-5)
[2020-05-17 10:42] LABS: Calcium 9.2 mg/dL (8.4-10.2); Magnesium 1.8 mg/dL (1.6-2.3); Phosphorus 4.8 mg/dL (2.5-4.5); Potassium 5.6 mmol/L (3.5-5.1); Uric Acid 5.3 mg/dL (3.7-7.4)
[2020-05-17 10:50] LABS: Creatinine,Urine Random 16.2 mg/dL; Protein/Creatinine Ratio,Urine 1.358
[2020-05-17 20:55] LABS: % Iron Saturation 8.75 (12.00-45.00)
== END | disposition home or self-care (01) ==
LOC: RADUSWWP 09:04
PROVIDERS: ATTEND Internal Medicine Nephrology
DX: N18.30 Chronic kidney disease, stage 3 unspecified (principal)
CPT/HCPCS: 76770; 80048; 81001; 82040; 82306; 82570; 82728; 83540; 83550; 83735; 83970; 84100; 84156; 84550; 85025

== ENCOUNTER → 2020-10-12 | Outpatient (CLI) | payer MEDICARE ==
--- NOTE | 2020-10-12 12:13 | CT ---
EXAMINATION TYPE: CT chest wo con DATE OF EXAM: 10/12/2020 COMPARISON: 04/07/2020 HISTORY: Follow up lung nodule. CT DLP: 466.2 mGycm. Automated Exposure Control for Dose Reduction was Utilized. TECHNIQUE: CT scan of the thorax is performed without IV contrast. FINDINGS: LUNGS: Biapical pleural thickening with findings suggestive of COPD. There is a 3 mm nodule in the pe ripheral margin of the right upper lobe stable. Vague 5 mm posterior left apical nodule Additional subpleural nodularity right upper lobe stable. Additional right upper lobe subpleural less than 3 mm nodules and left upper lobe subpleural is irregular nodule stable. 2 mm nodule axial image 23 stable. Subsegmental areas of consolidation are seen bilaterally felt to be most typical of atelectasis. Inte rlobular septal thickening suggest a degree of chronic interstitial lung disease. The nodule within t he left lower lobe previously measured 1.6 x 1.1 cm and appears similar in size measuring 1.4 x 1.1 c m.. No pneumothorax sizable pleural effusion. MEDIASTINUM: Lack of IV contrast is noted to limit evaluation for mediastinal and especially hilar ad enopathy. There are no definitive greater than 1 cm hilar or mediastinal lymph nodes. The heart is ma rkedly enlarged and there is coronary artery calcium patient. Atherosclerotic change of the aorta is seen and there appears to be aneurysmal dilation of the ascending thoracic aorta measuring 4 cm. The descending thoracic aorta is stable in size demonstrating aneurysmal dilation and abnormal soft tissu e along the periphery of the calcified aortic wall which is unchanged from prior exam measures a maxi mal thickness of 4.2 cm OTHER: Hypertrophic and degenerative change of the spine. IMPRESSION: 1. No significant interval change in size of the pulmonary nodules as described. 2. Persistent aneurysmal dilation of the ascending and descending thoracic aorta as discussed above. Persistent abnormal soft tissue attenuation surrounding the descending thoracic aortic could be corre lated with a postcontrast exam. Next 3. COPD correlate for chronic interstitial lung disease. 4. Coronary artery calcification with marked cardiomegaly is
== END | disposition home or self-care (01) ==
LOC: RADCTMAIN 08:44
PROVIDERS: ATTEND Internal Medicine
DX: R91.8 Other nonspecific abnormal finding of lung field (principal); J44.9 Chronic obstructive pulmonary disease, unspecified; I25.10 Atherosclerotic heart disease of native coronary artery without angina pectoris; I51.7 Cardiomegaly
CPT/HCPCS: 71250

== ENCOUNTER → 2021-04-09 | Outpatient (CLI) | payer MEDICARE ==
--- NOTE | 2021-04-10 08:50 | MM ---
Reason for exam: screening (asymptomatic). Last mammogram was performed 1 year ago. History: Patient is postmenopausal. 2 excisional biopsies of the left breast. Physical Findings: A clinical breast exam by your physician is recommended on an annual basis and results should be correlated with mammographic findings. MG Screening Mammo w CAD Bilateral CC and MLO view(s) were taken. Prior study comparison: April 07, 2020, bilateral MG 3d screening mammo w/cad. December 23, 2018, bilateral MG 3d screening mammo w/cad. There are scattered fibroglandular densities. There are benign appearing round calcifications bilaterally. There is chronic nodularity in the left breast. There is no discrete abnormality. ASSESSMENT: Benign, BI-RAD 2 RECOMMENDATION: Routine screening mammogram of both breasts in 1 year.
== END | disposition home or self-care (01) ==
LOC: RADMAMWWP 09:18
PROVIDERS: ATTEND Family Medicine
DX: Z12.31 Encounter for screening mammogram for malignant neoplasm of breast (principal); Z78.0 Asymptomatic menopausal state
CPT/HCPCS: 77067

== ENCOUNTER 2023-02-16 11:26 | Emergency (ER) | payer MEDICARE ==
[2023-02-16 11:31] VITALS: BP 146/66; PULSE 50; RESP 20; TEMP 98
--- NOTE | 2023-02-16 14:09 | ED ---
General Adult HPI - General Chief complaint: Skin/Abscess/Foreign Body Stated complaint: sores on buttock Time Seen by Provider: 02/16/23 12:40 Source: patient, RN notes reviewed Mode of arrival: ambulatory Limitations: no limitations - History of Present Illness Initial comments: 82-year-old female presents emergency department chief complaint of sores on her right buttock. She states that these have been there for about 8 weeks. She is on antifungals for 10 days as prescribed by her primary care physician. She reports that this is painful and she is unable to sit because of this. She also admits to pain in her genital region with a rash. Denies fever, chills, nausea, vomiting. - Related Data Home Medications Medication Instructions Recorded Confirmed Gabapentin [Neurontin] 400 mg PO QID 02/14/15 03/03/19 Insulin Lispro Protamin/Lispro 30 units SQ QAM 02/14/15 03/03/19 [humaLOG MIX 75-25 Kwikpen] Multivitamins, Thera [Multivitamin 1 tab PO DAILY 02/14/15 03/03/19 (formulary)] Pravastatin Sodium [Pravachol] 80 mg PO HS 02/14/15 03/03/19 Aspirin EC [Ecotrin Low Dose] 81 mg PO DAILY 06/04/18 03/03/19 INSULIN LISPRO (humaLOG) [humaLOG] 25 units SQ HS 03/01/19 03/03/19 atenoloL 25 mg PO QAM 03/01/19 03/03/19 lisinopriL [Zestril] 10 mg PO QAM 03/01/19 03/03/19 Previous Rx's Medication Instructions Recorded Docusate [Colace] 100 mg PO BID cap 06/06/18 Ferrous Sulfate [Iron (65 MG 325 mg PO BID-W/MEALS tab 06/06/18 Elemental)] Nystatin 100,000 Unit/gm Powd 1 applic TOPICAL BID #15 gram 02/16/23 [Mycostatin Powder] Nystatin 100,000 Unit/gm Powd 1 applic TOPICAL BID #15 gram 02/16/23 [Mycostatin Powder] Allergies Allergy/AdvReac Type Severity Reaction Status Date / Time cobalt Allergy Unknown TESTED Verified 02/16/23 11:31 POSITIVE ON ALLERGY TESTING latex Allergy Unknown Rash/Hives Verified 02/16/23 11:31 thimerosal Allergy Unknown TESTED Verified 02/16/23 11:31 POSITIVE ON ALLERGY TEST Review of Systems ROS Statement: Those systems with pertinent positive or pertinent negative responses have been documented in the HPI. ROS Other: All systems not noted in ROS Statement are negative. Past Medical History Past Medical History: Diabetes Mellitus, Hyperlipidemia, Hypertension, Osteoarthritis (OA), Sleep Apnea/CPAP/BIPAP Additional Past Medical History / Comment(s): Recent abnormal weight loss. Diabetic neuropathy in legs, herniated disc in back, constipation, past fall 2 yrs ago with fractured left shoulder, CPAP use. History of Any Multi-Drug Resistant Organisms: None Reported Past Surgical History: Hernia Repair, Joint Replacement, Tubal Ligation Additional Past Surgical History / Comment(s): Umbilical hernia repair, bilateral cataracts removed, lasik eye surgery, right knee replacement, right hip replacement. Past Anesthesia/Blood Transfusion Reactions: Family History of Problems w/ Anesthesia, Motion Sickness Additional Past Anesthesia/Blood Transfusion Reaction / Comment(s): Brother had PONV. Past Psychological History: No Psychological Hx Reported Smoking Status: Current every day smoker Past Alcohol Use History: None Reported Past Drug Use History: None Reported - Past Family History Mother Family Medical History: Diabetes Mellitus, Myocardial Infarction ([place]) Additional Family Medical History / Comment(s): Father Family Medical History: Diabetes Mellitus, Myocardial Infarction ([place]) Additional Family Medical History / Comment(s): Brother(s) Family Medical History: Myocardial Infarction ([place]) Additional Family Medical History / Comment(s): General Exam Limitations: no limitations General appearance: alert, in no apparent distress Head exam: Present: atraumatic, normocephalic, normal inspection Eye exam: Present: normal appearance, PERRL, EOMI. Absent: scleral icterus, conjunctival injection, periorbital swelling ENT exam: Present: normal exam, mucous membranes moist Respiratory exam: Present: normal lung sounds bilaterally. Absent: respiratory distress, wheezes, rales, rhonchi, stridor Cardiovascular Exam: Present: regular rate, normal rhythm, normal heart sounds. Absent: systolic murmur, diastolic murmur, rubs, gallop, clicks GI/Abdominal exam: Present: soft, normal bowel sounds. Absent: distended, tenderness, guarding, rebound, rigid Extremities exam: Present: full ROM, tenderness, normal capillary refill, other (Ulcerations to right buttock and thigh) Neurological exam: Present: alert, oriented X3 Psychiatric exam: Present: normal affect, normal mood Skin exam: Present: warm, dry, other (Ulcerations to right buttock and thigh, erythema to groin) Course Vital Signs 02/16/23 11:28 Temperature 98 F Pulse Rate 50 L Respiratory 20 Rate Blood Pressure 146/66 O2 Sat by Pulse 96 Oximetry Medical Decision Making - Medical Decision Making Was pt. sent in by a medical professional or institution (CONCETTA Goodrich, RECYCLING OR RUBBISH COLLECTOR, urgent care, hospital, or [facility]...) When possible be specific @ -No Did you speak to anyone other than the patient for history (EMS, parent, family, police, friend...)? What history was obtained from this source @ -No Did you review nursing and triage notes (agree or disagree)? Why? @ -I reviewed and agree with nursing and triage notes Were old charts reviewed (outside hosp., previous admission, EMS record, old EKG, old radiological studies, urgent care reports/EKG's, [facility] records)? Report findings @ -No old charts were reviewed Differential Diagnosis (chest pain, altered mental status, abdominal pain women, abdominal pain men, vaginal bleeding, weakness, fever, dyspnea, syncope, headache, dizziness, GI bleed, back pain, seizure, CVA, palpatations, mental health, musculoskeletal)? @ -not applicable EKG interpreted by me (3pts min.). @ -None X-rays interpreted by me (1pt min.). @ -None done CT interpreted by me (1pt min.). @ -None done U/S interpreted by me (1pt. min.). @ -None done What testing was considered but not performed or refused? (CT, X-rays, U/S, labs)? Why? @ -None What meds were considered but not given or refused? Why? @ -None Did you discuss the management of the patient with other professionals (professionals i.e. CONCETTA Goodrich, RECYCLING OR RUBBISH COLLECTOR, lab, RT, psych nurse, social insurance administrator, fuel efficient aircraft designer, teacher, chief credit officer, telephonic case manager)? Give summary @ -No Was smoking cessation discussed for >3mins.? @ -No Was critical care preformed (if so, how long)? @ -No Were there social determinants of health that impacted care today? How? (Homelessness, low income, unemployed, alcoholism, drug addiction, transportation, low edu. Level, literacy, decrease access to med. care, [facility], rehab)? @ -No Was there de-escalation of care discussed even if they declined (Discuss DNR or withdrawal of care, Hospice)? DNR status @ -No What co-morbidities impacted this encounter? (DM, HTN, Smoking, COPD, CAD, Cancer, CVA, ARF, Chemo, Hep., AIDS, mental health diagnosis, sleep apnea, morbid obesity)? @ -None Was patient admitted / discharged? Hospital course, mention meds given and r oute, prescriptions, significant lab abnormalities, going to OR and other pertinent info. @ -Discharged. Patient presented to the emergency department for chief complaint of sores on her buttocks and rash in her groin. Patient has healing ulcer to her buttocks. Patient also has tinea in her groin area and will be started on nystatin powder. 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 Patient discharged in stable condition. Case discussed with my attending, Dr. Jones who also evaluated the patient Undiagnosed new problem with uncertain prognosis? @ -No Drug Therapy requiring intensive monitoring for toxicity (Heparin, Nitro, Insulin, Cardizem)? @ -No Were any procedures done? @ -No Diagnosis/symptom? @ -tinea cruris Acute, or Chronic, or Acute on Chronic? @ -acute Uncomplicated (without systemic symptoms) or Complicated (systemic symptoms)? @ -uncomplicated Side effects of treatment? @ -No Exacerbation, Progression, or Severe Exacerbation? @ -No Poses a threat to life or bodily function? How? (Chest pain, [place], [place], pneumonia, PE, COPD, DKA, ARF, appy, cholecystitis, CVA, Diverticulitis, Homicidal, Suicidal, threat to staff... and all critical care pts) @ -No Disposition Clinical Impression: Tinea cruris Disposition: HOME SELF-CARE Condition: Stable Instructions (If sedation given, give patient instructions): Pepe Dowling (ED) Additional Instructions: Please follow up with your primary care provider and broadcast meteorologist as scheduled. Prescriptions: Nystatin 100,000 Unit/gm Powd [Mycostatin Powder] 1 applic TOPICAL BID #15 gram Nystatin 100,000 Unit/gm Powd [Mycostatin Powder] 1 applic TOPICAL BID #15 gram Is patient prescribed a controlled substance at d/c from ED?: No Referrals: Rachel Farfan MD [Primary Care Provider] - 1-2 days Time of Disposition: 14:09
== END 2023-02-16 14:20 | disposition home or self-care (01) ==
LOC: EC 11:26
DX: B35.6 Tinea cruris (principal); E11.9 Type 2 diabetes mellitus without complications; E78.5 Hyperlipidemia, unspecified; I10 Essential (primary) hypertension; M19.90 Unspecified osteoarthritis, unspecified site; G47.30 Sleep apnea, unspecified; F17.200 Nicotine dependence, unspecified, uncomplicated; Z79.4 Long term (current) use of insulin; Z79.1 Long term (current) use of non-steroidal anti-inflammatories (NSAID); Z79.82 Long term (current) use of aspirin; Z79.899 Other long term (current) drug therapy; Z91.040 Latex allergy status; Z88.8 Allergy status to other drugs, medicaments and biological substances
CPT/HCPCS: 87070; 87205; 99282

== ENCOUNTER → 2023-05-22 | Day surgery (SDC) | payer MEDICARE ==
[~2023-05-22] MED LIST changes: +DEXAMETHASONE SOD PHOSPHATE 4 MG/ML 1 ML VIAL IV ONE; +HYDROmorphone 0.5 MG/0.5 ML SYRINGE IVP PRN; +KETOROLAC 15 MG/ML 1 ML VIAL ONE; +LIDOCAINE 1% (10MG/ML) FOR IV START INTRADERMA PRN; -LIDOCAINE 1% 20 ML VIAL (10MG/ML) FOR IV START INTRADERMA PRN; +LIDOCAINE 1% INJ 10MG/ML (20 ML MDV) ONE; +ONDANSETRON 4 MG/2 ML VIAL IVP ONE; +PROPOFOL 10 MG/ML 20 ML VIAL IV ONE; +Pre Op ABX Message 1 EACH MISC MISCELLANE ONE; +droPERidol 5 MG/2 ML VIAL IVP PRN; +fentaNYL (PF) 50 MCG/ML 2 ML AMP ONE
[2023-05-22 12:10] LABS: Glucose,Whole Blood 190 mg/dL (70-110)
[2023-05-22 13:28] VITALS: TEMP 97
--- NOTE | 2023-05-22 13:42 | P.HPOB ---
History of Present Illness H&P Date: 05/22/23 Chief Complaint: Vulvar lesion This is a 82-year-old female that is been seen multiple times with complaints of gluteal lesions and increasing vaginal/vulvar discomfort. 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 Patient initially did well with clobetasol cream but then wasn't seen in the office for multiple months, patient returned with her daughter with complaints of increasing pain and discomfort. Patient states she was unable to sit secondary to pain in her gluteal area with the lesion/source. Patient notes burning with urination. Today patient states she is had blood that has been running down her leg at times. She is unsure of where the blood is coming from that family has noticed it well she rises from a chair. Review of Systems Constitutional: Reports fatigue, Denies chills, Denies fever Ears, nose, mouth and throat: Denies headache Cardiovascular: Reports leg edema Respiratory: Denies dyspnea Gastrointestinal: Denies nausea, Denies vomiting Genitourinary: Reports as per HPI Menstruation: Reports postmenopausal Past Medical History Past Medical History: Diabetes Mellitus, Hyperlipidemia, Hypertension, Osteoarthritis (OA), Sleep Apnea/CPAP/BIPAP Additional Past Medical History / Comment(s): Diabetic neuropathy in legs, RLS, herniated disc in back, constipation, past fall couple of years ago with fractu red left shoulder, CPAP use. History of Any Multi-Drug Resistant Organisms: None Reported Past Surgical History: Hernia Repair, Joint Replacement, Tubal Ligation Additional Past Surgical History / Comment(s): Umbilical hernia repair, bilateral cataracts removed, lasik eye surgery, right knee replacement, right hip replacement. Past Anesthesia/Blood Transfusion Reactions: Family History of Problems w/ Anesthesia Additional Past Anesthesia/Blood Transfusion Reaction / Comment(s): Brother had PONV. Smoking Status: Current every day smoker - Past Family History Mother Family Medical History: Diabetes Mellitus, Myocardial Infarction ([place]) Additional Family Medical History / Comment(s): Father Family Medical History: Diabetes Mellitus, Myocardial Infarction ([place]) Additional Family Medical History / Comment(s): Brother(s) Family Medical History: Myocardial Infarction ([place]) Additional Family Medical History / Comment(s): Medications and Allergies Home Medications Medication Instructions Recorded Confirmed Type Gabapentin [Neurontin] 400 mg PO QAM 02/14/15 05/20/23 History Insulin Lispro Protamin/Lispro 40 units SQ QAM 02/14/15 05/20/23 History [humaLOG MIX 75-25 Kwikpen] Pravastatin Sodium [Pravachol] 40 mg PO HS 02/14/15 05/20/23 History Aspirin EC [Ecotrin Low Dose] 81 mg PO HS 06/04/18 05/20/23 History atenoloL 25 mg PO QAM 03/01/19 05/20/23 History Nystatin 100,000 Unit/gm Powd 1 applic TOPICAL BID #15 gram 02/16/23 05/20/23 Rx [Mycostatin Powder] Carbidopa/Levodopa [Carbidopa-Levo 1 tab PO HS 05/20/23 05/20/23 History 25-250 mg Odt] Cholecalciferol [Vitamin D3 (125 125 mcg PO QAM 05/20/23 05/20/23 History Mcg = 5000 Iu)] Clobetasol Propionate [Temovate 1 applic TOPICAL HS 05/20/23 05/20/23 History 0.05% Cream] Diaper Rash Cream 1 applic TOPICAL BID 05/20/23 05/20/23 History Docusate [Colace] 100 mg PO QAM 05/20/23 05/20/23 History Ferrous Sulfate [Iron (65 MG 325 mg PO QAM 05/20/23 05/20/23 History Elemental)] Gabapentin [Neurontin] 800 mg PO HS 05/20/23 05/20/23 History diphenhydrAMINE [Benadryl] 25 mg PO HS 05/20/23 05/20/23 History Allergies Allergy/AdvReac Type Severity Reaction Status Date / Time cobalt Allergy Unknown TESTED Verified 05/22/23 11:40 POSITIVE ON ALLERGY TESTING latex Allergy Unknown Rash/Hives Verified 05/22/23 11:40 thimerosal Allergy Unknown TESTED Verified 05/22/23 11:40 POSITIVE ON ALLERGY TEST Exam Osteopathic Statement: *. No significant issues noted on an osteopathic structural exam other than those noted in the History and Physical/Consult. 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 Multiple ulcerations are appreciated no active bleeding was noted. Vaginal exam was not completed secondary to discomfort. Results Result Diagrams: 05/22/23 12:17 Abnormal Lab Results - Last 24 Hours (Table) 05/22/23 05/22/23 Range/Units 11:52 12:17 Potassium 5.3 H (3.5-5.1) mmol/L POC Glucose (mg/dL) 190 H (70-110) mg/dL Assessment and Plan (1) Vulvar lesion Current Visit: Yes Status: Acute Code(s): N90.89 - OTH NONINFLAMMATORY DISORDERS OF VULVA AND PERINEUM SNOMED Code(s): 024187610 Plan: A 2-year-old female presents for exam under anesthesia with vulvar biopsy. Patient was unable to tolerate biopsies were examined the office. Patient's daughter's requested exam under anesthesia in May as they were able to attend and the [place] of [place]. Patient was seen last in the office in January or surgery was reviewed and questions were answered. We will attempt exam under anesthesia with multiple biopsies sent to pathology for evaluation of tissue.
--- NOTE | 2023-05-22 13:45 | P.OP ---
Date of Procedure: 05/22/23 Preoperative Diagnosis: Vulvar/labial lesions Postoperative Diagnosis: Same Procedure(s) Performed: Exam under anesthesia with multiple right and left biopsies Anesthesia: GETA Surgeon: Sera Mccain Estimated Blood Loss (ml): 5 IV fluids (ml): 300 Urine output (ml): 0 Pathology: other (Multiple labial biopsies labeled left and right separate) Condition: stable Disposition: PACU Indications for Procedure: Labial lesions Operative Findings: Bilateral labia with multiple ulcerations and busby mucoid discharge around the clitoral/urethral area. Attempted passage of latex free catheter to drain the b ladder, unable to past catheter. Bilateral labial with inflammatory change in ulcerations. On pelvic exam vaginal mucosa is pale rugated no pelvic masses are appreciated Description of Procedure: Patient was taken back to the operating suite where general anesthesia was obtained by the anesthesia department. She is prepped and draped in the normal sterile fashion in the dorsal lithotomy position on insulin examination the above-noted findings are visualized. Multiple biopsies are taken with the Metzenbaum scissors. The Bovie was used to obtain hemostasis. In addition a right gluteal ulceration/bed sore was appreciated this appears to be in the healing stages. All counts were noted to be correct 2 at the end of the procedure. Patient tolerated procedure well
[2023-05-22 13:53] VITALS: RESP 16
[2023-05-22 14:27] LABS: Glucose,Whole Blood 153 mg/dL (70-110)
[2023-05-22 14:43] VITALS: BP 121/71; PULSE 65
== END | disposition home or self-care (01) ==
LOC: OR 10:55
PROVIDERS: ATTEND Obstetrics & Gynecology Obstetrics
DX: N76.6 Ulceration of vulva (principal); E11.40 Type 2 diabetes mellitus with diabetic neuropathy, unspecified; E78.5 Hyperlipidemia, unspecified; G25.81 Restless legs syndrome; G47.30 Sleep apnea, unspecified; I10 Essential (primary) hypertension; M19.90 Unspecified osteoarthritis, unspecified site; F17.200 Nicotine dependence, unspecified, uncomplicated; Z79.4 Long term (current) use of insulin; Z79.82 Long term (current) use of aspirin; Z91.040 Latex allergy status; Z88.8 Allergy status to other drugs, medicaments and biological substances; Z91.048 Other nonmedicinal substance allergy status; Z79.899 Other long term (current) drug therapy
CPT/HCPCS: 88305; 84132; 87070; 87205; 87075; 87077; 87186; 56605; J1100; J2405; J2001; J3010; J1885; J2704